=== PATIENT | male | born 1940 | race Caucasian/White ===

== ENCOUNTER → 2016-07-11 | Day surgery (SDC) | payer OTHER ==
[2016-07-03 10:47] VITALS: Ht 172.7 cm; Wt 86.4 kg
[~2016-07-11] VITALS: Ht 172.7 cm; Wt 86.4 kg
[~2016-07-11] MED LIST: 500ML BSS 0.3ML EPI 1:1000PF IRRIG ONE; ACETAMINOPHEN 325 MG TAB PO PRN; AMVISC PLUS 0.8ML SYRINGE INT OCU ONE; ATROPINE SULFATE 0.1 MG/ML 5ML SYR IV PRN; BSS FLUSH ONE; CHOL200010 PO; CINN1CAP2 PO; CYAN100020 PO; EpHEDrine SULFATE INJ 50 MG/ML AMP IV PRN; EpINEphrine INJ 1MG/ML AMP 1 MG/ML AMP ONE; FENTANYL CITRATE INJ 50 MCG/1 ML 2 ML VIAL IV PRN; FLUMAZENIL 0.1 MG/1 ML 10 ML VIAL IV PRN; GEMF600T PO; GLC/500 PO; HYDROmorphone INJ 2 MG/ML SYR/VIAL IV PRN; LABETALOL HCL IV 5 MG/ML 20ML IV PRN; LACTATED RINGER'S 1000ML 500 ML IV SCH; LIDOCAINE 3.5% OPH GEL PER APPLICATION CHARGE ONE; LIDOCAINE HCL 1% MPF 2 ML VIAL ONE; MEPERIDINE HCL 25 MG/ML CARP IV PRN; MIDAZOLAM HCL 1 MG/ML 2ML VIAL ONE; MULT-506 PO; NALOXONE HCL 0.4 MG/1 ML VIAL/CARP IV PRN; OCUCOAT 1 ML SOLN IO ONE; OMEGCAP2 PO; ONDANSETRON INJ 2 MG/ML 2 ML VIAL IV PRN; PHENYLEPHRINE 100MCG/ML 5ML SYR IV PRN; POTA1TAB97 PO; POVIDONE-IODINE OP SOLN 30 ML BTL ONE; PROPARACAINE 0.5% OP SOLN PER DROP CHARGE OPR SCH; PRT/20 PO; SAXAGLIPTIN PO; SODIUM CHLORIDE 0.9% 500ML IV SCH; TOBRAMYCIN/DEXAMETHASONE OPH OINT PER APPLN CHARGE ONE
[2016-07-11] MEDS: PHENYLEPHRINE HCL 2.5% OP SOLN PER DROP CHARGE OPR SCH ×2 (07:06→07:11)
[2016-07-11] MEDS: TROPICAMIDE 1% OP SOLN PER DROP CHARGE OPR SCH ×2 (07:07→07:12)
[2016-07-11] MEDS: CYCLOPENTOLATE HCL 1% OP SOLN PER DROP CHARGE OPR SCH ×2 (07:08→07:13)
[2016-07-11] MEDS: KETOROLAC 0.5% OP SOLN PER DROP CHARGE OPR SCH ×2 (07:09→07:14)
[2016-07-11] MEDS: GATIFLOXACIN OP SOLN PER DROP CHARGE OPR SCH ×2 (07:10→07:20)
--- NOTE | 2016-07-11 07:27 | History & Physical Bridge - [place] ---
H&P Re-Evaluation Bridge Note: I have examined the patient, reviewed the History & Physical and in the interval since the performance of the History & Physical I have noted the following changes of clinical significance: No changes noted
[2016-07-11 08:10] VITALS: TEMP 36.8
--- NOTE | 2016-07-11 08:10 | Discharge Instructions-SurgCtr ---
Discharge Instructions Visit Reason for Visit: Cataract Right Eye Discharge Discharge Diagnosis / Problem: cataract Discharge Goals Goal(s): Improve function Medications Stopped Medications Name(s): metformin stopped for 3 days Activity Recommendations Activity Limitations: per Instructions/Follow-up section Anesthesia . Post Anesthesia Instructions: If you have had General Anesthesia or IV Sedation: * Do not drive today. * Resume driving when surgeon permits. * Do not make important decisions or sign legal documents today. * Call surgeon for: 1. Temperature elevations greater than 101 degrees F. 2. Uncontrollable pain. 3. Excessive bleeding. 4. Persistent nausea and vomiting. 5. Medication intolerance (nausea, vomiting or rash). * For nausea and vomiting use only clear liquids such as: tea, soda, bouillon until nausea subsides, then gradually increase diet as tolerated. * If you have any concerns or questions, call your surgeon's office. If physician is unavailable and it is an emergency, call 911 or go to the nearest emergency room. . Instructions / Follow-Up Instructions / Follow-Up ACTIVITY RECOMMENDATIONS: * No strenuous lifting, jogging or running for 4 days * No swimming or yard work for 1 week. * Limited bending is permitted, such as putting on shoes. RETURN TO SCHOOL/WORK: No work until seen by physician in office. MEDICATIONS: Resume previous medications unless instructed otherwise by your surgeon. This includes eye drops for glaucoma. Zymaxid/Gatifloxacin (baldwin cap) - one drop every 2 hours until bedtime Nevanac/Ilevro/Prolensa/Ketorolac (mccartney cap) - one drop every 4 hours until bedtime Prednisolone (white/pink cap, SHAKE WELL) - one drop every 2 hours until bedtime Starting tomorrow - all 3 drops every 4 hours until seen in the office Optive drops - as needed for discomfort SPECIAL CARE INSTRUCTIONS: * Wear eyeshield when sleeping, for four nights. * You may wear your own glasses or sunglasses while awake. * You may read or watch TV * You may shower and wash your face, but be gentle around the eye and pat dry. * Blurry vision and mild irritation are normal. * Call office if pain is more severe or vision becomes dark at . FOLLOW UP VISIT: Follow-up with Dr Hassan tomorrow. Diet Recommendations Home Diet: resume previous diet Procedures Procedures Performed: Right Cataract Phacoemulsification With Intraocular Lens Implant Pending Studies Studies pending at discharge: no Medical Emergencies . Who to Call and When: Medical Emergencies: If at any time you feel your situation is an emergency, please call 911 immediately. . Non-Emergent Contact Non-Emergency issues call your: Separator Inserter . . "Provider Documentation" section prepared by Juan Pablo Hassan.
--- NOTE | 2016-07-11 08:11 | [facility] Operative Report ---
Operative Report 1. PREOPERATIVE DIAGNOSIS: Cataract of the right eye. 2. POSTOPERATIVE DIAGNOSIS: Same. 3. PROCEDURE: Phacoemulsification with intraocular lens implantation of the right eye. SURGEON: Dr. Juan Pablo Hassan. ANESTHESIA: Topical Lidocaine gel, 1% Non- Preserved intracameral Lidocaine, and monitored intravenous sedation. INDICATIONS FOR THE PROCEDURE: The patient is a 75 - year-old male with a history of cataract of the right eye causing significant visual impairment. The details of the proposed procedure were explained to the patient who asked appropriate questions and following discussion of all risks, benefits and alternatives agreed to have the procedure done. 4. OPERATION AND FINDINGS: DESCRIPTION OF PROCEDURE: After informed consent was obtained, the patient was brought to the Operating Room at the [facility]. The patient was placed in a supine position and then the right eye was prepped and draped in the usual sterile fashion for intraocular surgery. A drop of topical Lidocaine gel was placed in the operative eye. A wire lid speculum was then placed in the fornices. A corneal paracentesis was then created temporally. The Non-Preserved Lidocaine was then instilled into the anterior chamber. The anterior chamber was then pressurized with viscoelastic. A 2.0 mm clear corneal incision was then created temporally. A cystotome was inserted into the anterior chamber and used to create a tear in the anterior lens capsule. This capsular tear was then used to create a small flap and the flap was dragged in a counterclockwise direction in order to create a continuous curvilinear capsulorrhexis. Hydrodissection was accomplished with balanced salt solution. Phacoemulsification of the lens nucleus was then performed in a standard [id number] technique. The phaco time was 22 seconds with an average power of 14 %. The remaining cortical material was removed using irrigation aspiration. The capsular bag was then filled with viscoelastic. A [employer]ch [employer] Lomb MI60L +18.0 diopters lens was then loaded into the injector and injected into the capsular bag. The remaining viscoelastic was removed with the irrigation aspiration handpiece. The wound was hydrated and then checked and found to be watertight. The intraocular pressure was checked and found to be adequate. The wire lid speculum was removed and the patient's face was cleaned and dried. TobraDex ointment was placed in the inferior fornix. The patient was discharged to the Recovery Room having tolerated the procedure well. There were no complications. The patient will be seen tomorrow in the office for follow-up. I attest to the content of the Intraoperative Record and any orders documented therein. Any exceptions are noted below.
--- NOTE | 2016-07-11 08:28 | Anesthesia Progress Nt - [facility] ---
Anesthesia Post Op Note Date & Time Jul 11, 2016 at 08:28 Vital Signs Pain Intensity: 0 Vital Signs Past 12 Hours Date Time Temp Pulse Resp B/P Pulse Ox O2 Delivery O2 Flow Rate FiO2 07/11/16 08:10 36.8 69 16 124/73 97 Room Air 07/11/16 06:59 36.6 59 20 161/80 96 Room Air Notes Mental Status: alert / awake / arousable, participated in evaluation Pt Amnestic to Procedure: Yes Nausea / Vomiting: adequately controlled Pain: adequately controlled Airway Patency, RR, SpO2: stable & adequate BP & HR: stable & adequate Hydration State: stable & adequate Anesthetic Complications: no major complications apparent
[2016-07-11 08:36] VITALS: BP 132/76; PULSE 62; O2SAT 97
== END | disposition home or self-care (01) ==
LOC: X.SURG 06:44
PROVIDERS: ATTEND Ophthalmology
DX: H26.9 Unspecified cataract (principal); E11.36 Type 2 diabetes mellitus with diabetic cataract; M19.90 Unspecified osteoarthritis, unspecified site; E78.5 Hyperlipidemia, unspecified; Z98.42 Cataract extraction status, left eye; Z90.89 Acquired absence of other organs; I10 Essential (primary) hypertension; Z98.890 Other specified postprocedural states; Z87.891 Personal history of nicotine dependence; Z83.3 Family history of diabetes mellitus; Z82.49 Family history of ischemic heart disease and other diseases of the circulatory system; Z83.49 Family history of other endocrine, nutritional and metabolic diseases

== ENCOUNTER → 2016-08-14 | Outpatient (CLI) | payer OTHER ==
[~2016-08-14] MED LIST changes: -500ML BSS 0.3ML EPI 1:1000PF IRRIG ONE; -ACETAMINOPHEN 325 MG TAB PO PRN; -AMVISC PLUS 0.8ML SYRINGE INT OCU ONE; -ATROPINE SULFATE 0.1 MG/ML 5ML SYR IV PRN; -BSS FLUSH ONE; -EpHEDrine SULFATE INJ 50 MG/ML AMP IV PRN; -EpINEphrine INJ 1MG/ML AMP 1 MG/ML AMP ONE; -FENTANYL CITRATE INJ 50 MCG/1 ML 2 ML VIAL IV PRN; -FLUMAZENIL 0.1 MG/1 ML 10 ML VIAL IV PRN; -HYDROmorphone INJ 2 MG/ML SYR/VIAL IV PRN; -LABETALOL HCL IV 5 MG/ML 20ML IV PRN; -LACTATED RINGER'S 1000ML 500 ML IV SCH; -LIDOCAINE 3.5% OPH GEL PER APPLICATION CHARGE ONE; -LIDOCAINE HCL 1% MPF 2 ML VIAL ONE; -MEPERIDINE HCL 25 MG/ML CARP IV PRN; -MIDAZOLAM HCL 1 MG/ML 2ML VIAL ONE; -NALOXONE HCL 0.4 MG/1 ML VIAL/CARP IV PRN; -OCUCOAT 1 ML SOLN IO ONE; -ONDANSETRON INJ 2 MG/ML 2 ML VIAL IV PRN; -PHENYLEPHRINE 100MCG/ML 5ML SYR IV PRN; -POVIDONE-IODINE OP SOLN 30 ML BTL ONE; -PROPARACAINE 0.5% OP SOLN PER DROP CHARGE OPR SCH; -SODIUM CHLORIDE 0.9% 500ML IV SCH; -TOBRAMYCIN/DEXAMETHASONE OPH OINT PER APPLN CHARGE ONE
[2016-08-14 11:05] LABS: ALT/SGPT 29 U/L (12-78); BLOOD UREA NITROGEN 23 mg/dl (7-18); BUN/CREATININE RATIO 28.9 (10-20); CARBON DIOXIDE 22 mmol/L (21-32); CHLORIDE 108 mmol/L (98-107); CREATININE 0.81 mg/dl (0.60-1.40); GLUCOSE 160 mg/dl (70-99); SODIUM 142 mmol/L (136-145)
[2016-08-14 11:08] LABS: ALB/GLOB RATIO 1.1 (0.9-2); ALKALINE PHOSPHATASE 80 U/L (45-117); AST/SGOT 19 U/L (15-37)
[2016-08-14 11:24] LABS: ESTIMATED AVERAGE GLUCOSE 163 mg/dl; HA1C FLAG Normal (Normal)
== END | disposition home or self-care (01) ==
LOC: C.LABBC 07:02
PROVIDERS: ATTEND Internal Medicine
DX: E11.9 Type 2 diabetes mellitus without complications (principal)

== ENCOUNTER → 2017-02-21 | Outpatient (CLI) | payer OTHER ==
[2017-02-21 11:34] LABS: BLOOD UREA NITROGEN 22 mg/dl (7-18); BUN/CREATININE RATIO 26.9 (10-20); CALCIUM 9.4 mg/dl (8.5-10.1); CARBON DIOXIDE 29 mmol/L (21-32); CHLORIDE 105 mmol/L (98-107); CREATININE 0.82 mg/dl (0.60-1.40); GLUCOSE 201 mg/dl (70-99); POTASSIUM 4.2 mmol/L (3.5-5.1); SODIUM 136 mmol/L (136-145)
[2017-02-21 11:37] LABS: ALKALINE PHOSPHATASE 102 U/L (45-117); ALT/SGPT 32 U/L (12-78); AST/SGOT 29 U/L (15-37); CHOLESTEROL 167 mg/dl (0-200); CHOLESTEROL/HDL RATIO 5.6; HDL CHOLESTEROL 30 mg/dl; LDL CHOLESTEROL CALCULATED 92 mg/dl; TRIGLYCERIDES 224 mg/dl (0-150); VERY LOW DENSITY LIPOPROT CALC 45 mg/dl
[2017-02-21 12:11] LABS: ESTIMATED AVERAGE GLUCOSE 183 mg/dl; HA1C FLAG Normal (Normal)
== END | disposition home or self-care (01) ==
LOC: C.LABBC 07:34
PROVIDERS: ATTEND Internal Medicine
DX: M19.90 Unspecified osteoarthritis, unspecified site (principal)

== ENCOUNTER → 2017-09-07 | Outpatient (CLI) | payer OTHER ==
[2017-09-07 11:29] LABS: ALBUMIN 3.7 gm/dl (3.4-5.0); ALT/SGPT 24 U/L (12-78); BLOOD UREA NITROGEN 19 mg/dl (7-18); CALCIUM 8.8 mg/dl (8.5-10.1); CARBON DIOXIDE 26 mmol/L (21-32); CHOLESTEROL 128 mg/dl (0-200); CREATININE 0.72 mg/dl (0.60-1.40); GLUCOSE 161 mg/dl (70-99); SODIUM 138 mmol/L (136-145)
[2017-09-07 11:32] LABS: ALKALINE PHOSPHATASE 88 U/L (45-117); AST/SGOT 15 U/L (15-37); LDL CHOLESTEROL CALCULATED 55 mg/dl; TOTAL PROTEIN 7.3 gm/dl (6.4-8.2)
[2017-09-07 11:51] LABS: HEMOGLOBIN A1C 6.6 % (4.5-5.6)
== END | disposition home or self-care (01) ==
LOC: C.LABBC 07:18
PROVIDERS: ATTEND Internal Medicine
DX: E11.69 Type 2 diabetes mellitus with other specified complication (principal)

== ENCOUNTER → 2017-10-05 | Outpatient (CLI) | payer OTHER | END | disposition home or self-care (01) | LOC: C.LABBC 11:18 | PROVIDERS: ATTEND Nurse Practitioner Adult Health | DX: E55.9 Vitamin D deficiency, unspecified (principal); E11.9 Type 2 diabetes mellitus without complications ==

== ENCOUNTER 2021-02-12 10:44 | Inpatient (IN) ==
--- NOTE | 2021-02-12 12:21 | Emergency Department Note ---
Impression & Plan Lower back pain, Sciatica, Bilateral leg weakness, Failure of outpatient treatment ED Provider Note NAME: BRIELLE LOVE AGE: 80 SEX: M : 1940 ARRIVES VIA: Walk-In INFORMANT: [Patient] ED PROVIDER(S): [Graeme Persaud MD] CHIEF COMPLAINT: Back pain HISTORY OF PRESENT ILLNESS: The patient is an 80-year-old male who presents with ongoing right lower back pain radiating down his right leg. His right leg is weak compared to the left. He has not fallen though. He is using ice, Tylenol, hydrocodone with minimal pain relief. He states that he cannot sleep at night. He is rocking in bed because of the discomfort. It is severe. The patient was scheduled for surgery on his back through Dr. Paez's office. This was scheduled for March but now may have been moved up for this Sunday, 2 days from now. He was referred to this ER for hospitalization/admission given the ongoing pain and his lack of relief with oral meds. The patient has undergone lumbar injections. These worked for a while but lately, they have not been working. There has been no fever. No cough or cold or congestion. No urinary complaints. REVIEW OF SYSTEMS: See HPI for pertinent positives and negatives. A total of ten systems were reviewed and were otherwise negative. PMHx/PSHx: See Below SOCIAL HISTORY: See Below. PHYSICAL EXAM: GENERAL: Patient is in no acute distress. HEENT: No acute trauma, normocephalic atraumatic, mucous membranes moist, no nasal congestion, no scleral icterus. NECK: No stridor, no adenopathy, no meningismus, trachea is midline. LUNGS: Clear to auscultation bilaterally, no wheeze, no rhonchi, breath sounds equal. HEART: Without murmurs gallops or rubs, regular rate and rhythm. ABDOMEN: Soft, nontender, bowel sounds positive, no hernias, no peritonitis. EXTREMITIES: No cyanosis, mild bilateral pedal edema, full range of motion of all the joints without pain or difficulty, no signs for acute trauma. NEUROLOGIC: Oriented x 3, no acute motor or sensory deficits, no focal weakness. SKIN: No rash, no jaundice, no diaphoresis. DIFFERENTIAL DIAGNOSIS: Musculoskeletal, disc herniation, fracture, metastatic disease, cord compression, discitis, sciatica, cauda equina, infection, aortic disease, renal colic, gastrointestinal, as well as other pathologies. EMERGENCY DEPARTMENT COURSE/PROCEDURES: MEDICAL DECISION MAKING: There is no leukocytosis or concerning anemia. There is a normal platelet count. No significant electrolyte abnormality or kidney failure. No concerning liver enzyme elevation. Urinalysis shows some glucose, no signs of infection. Covid testing is pending. On exam, the patient was not febrile or toxic. The patient presents with ongoing back pain with right leg discomfort and weakness. He can barely get around on his own. He is using [id number] pain meds as well as prescription pain meds. He has had injections in the lower back which recently have been failing. I did speak with Dr. Paez of spinal surgery. The patient is being hospitalized for an upcoming procedure to hopefully relieve his discomfort. He has failed outpatient treatment. Past Med/Surg History Medical History Balance disorder Borderline hypertension BPH (benign prostatic hyperplasia) Cerebrovascular disease follows with Dr. Panchal Dyslipidemia GERD (gastroesophageal reflux disease) Hx of lipoma with removal x several to arms Hypertriglyceridemia Kidney stones one small one present Lumbar radicular pain Lumbar spinal stenosis Severe at L2-3 Metabolic syndrome Osteoarthritis Pain of left lower extremity Sleep apnea no official dx, but notices he does have apenic episodes at night Type 2 diabetes mellitus NIDDM Surgical History (Updated 02/11/21 @ 13:32 by Apurva Woodall RN) History of cardiac cath Jun 2020 [facility] > could not stent so sent to [facility] for CABG History of cataract extraction bilat History of colonoscopy History of coronary artery bypass graft Jun 2020 > [address] [facility] History of tonsillectomy and adenoidectomy Family History Unknown Arteriosclerotic cardiovascular disease (ASCVD) Mother Hypertension Hearing loss Father Silicosis Brother Stroke syndrome Arteriosclerotic cardiovascular disease (ASCVD) Hx of CABG Diabetes Hypertension Sister Diabetes Hypertension Daughter Systemic lupus erythematosus Other No family history of bleeding disorder Social History Smoking Status: Former smoker Tobacco Type: Cigarettes Age Started Using Tobacco: 4; Age Quit Using Tobacco: 44; packs per day: 0.75; Years Smoked: 40; Second Hand Exposure: No; Hx Alcohol Use: No Hx Substance Use: No Preferred Language: Lithuanian Communication Ability: Effective Visual Impairment: Limited Hearing Ability: Use of Hearing Aid 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 Beliefs That Will Affect Care: None marital status: Current Living Situation: Spouse current occupational status: retired Feels Safe at Home: Yes Childhood Exposure to Second-Hand Smoke: Yes caffeine: Yes Dental Care, Regularly: No Physical Activity Frequency: Does not Exercise Physical Activity Frequency Comment: due to physical condition Seatbelt Use: always Sunscreen Use: No Do you think of yourself as: straight/heterosexual Assistive Devices: Cane, Glasses, Hearing Aid - Bilateral, Walker and Wheelchair Allergies Allergies Allergy/AdvReac Type Severity Reaction Status Date / Time Pork/Porcine Containing Allergy Unknown Blister Verified 02/12/21 11:25 Products baclofen AdvReac Mild Nausea Verified 02/12/21 11:25 Home Meds Home Medications Medication Instructions Recorded Confirmed cholecalciferol (vitamin D3) 50 2,000 units PO QAM 02/10/19 02/12/21 mcg (2,000 unit) capsule omega-3 fatty acids 1,000 mg 1,000 mg PO QAM 02/10/19 02/12/21 capsule (Fish Oil Concentrate) cyanocobalamin (vitamin B-12) 1,000 mcg PO QAM 03/06/19 02/12/21 1,000 mcg capsule aspirin 81 mg tablet,delayed 81 mg PO QAM 06/02/20 02/12/21 release (Adult Low Dose Aspirin) diphenhydramine 25 2 tab PO Q6H PRN 09/02/20 02/12/21 mg-acetaminophen 500 mg tablet (Tylenol PM Extra Strength) empagliflozin 10 mg tablet 10 mg PO QAM 02/11/21 02/12/21 (Jardiance) glipizide 5 mg tablet 5 mg PO PM 02/11/21 02/12/21 ibuprofen 800 mg tablet 200 mg PO Q6H PRN 02/11/21 02/12/21 metformin 500 mg tablet 1,000 mg PO BID 02/11/21 02/12/21 pantoprazole 40 mg tablet,delayed 40 mg PO PM 02/11/21 02/12/21 release potassium chloride 20 mEq 20 meq PO QAM 02/11/21 02/12/21 tablet,extended release tamsulosin 0.4 mg capsule 0.4 mg PO PM 02/11/21 02/12/21 atorvastatin 80 mg tablet 40 mg PO HS 02/12/21 02/12/21 exdrrfhcnvaa-tefcnjpf-nyjevh tablet 1 tab PO DAILY 02/12/21 02/12/21 Previous Rx's Medication Instructions Recorded nitroglycerin 0.4 mg sublingual 0.4 mg SUBLINGUAL Q5M PRN #20 tab 06/14/20 tablet blood sugar diagnostic (Accu-Chek #200 ea 07/06/20 Christen Plus test strp) lancets (Accu-Chek Softclix #200 ea 07/06/20 Lancets) metoprolol tartrate 25 mg tablet 25 mg PO BID #180 tab 08/12/20 flash glucose scanning reader #1 ea 01/25/21 ([employer] Checo 14 Day [place]) hydrocodone 5 mg-acetaminophen 325 1 tab PO BID PRN #60 tab 01/25/21 mg tablet Results & Data (ED) Vital Signs Vital Signs - 24 hr 02/12/21 10:45 02/12/21 10:51 02/12/21 12:45 Temperature 36.4 C L Temperature Source Temporal Artery Scan Pulse Rate 71 Pulse Rate [Finger] 68 76 Pulse Rhythm [Finger] Respiratory Rate 16 20 16 Respiratory Effort / Characteristics Non-Labored Non-Labored Spontaneous Respiratory Depth Normal Normal Respiratory Pattern Regular Blood Pressure 140/64 Blood Pressure [Left Arm] 145/97 H 138/78 Blood Pressure Mean 89 Blood Pressure Mean [Left Arm] 113 98 Blood Pressure Position Sitting Pulse Oximetry 98 97 98 Oxygen Delivery Method Room Air Room Air Sepsis Recent Fever Within 48 Hours No Sepsis New/Unexplained Change in Mental Status N/A Sepsis Action Taken by Nursing No Action Required 02/12/21 14:00 Temperature Temperature Source Pulse Rate Pulse Rate [Finger] 73 Pulse Rhythm [Finger] Regular Respiratory Rate 16 Respiratory Effort / Characteristics Non-Labored Respiratory Depth Normal Respiratory Pattern Blood Pressure Blood Pressure [Left Arm] 129/69 Blood Pressure Mean Blood Pressure Mean [Left Arm] 89 Blood Pressure Position Pulse Oximetry 95 Oxygen Delivery Method Room Air Sepsis Recent Fever Within 48 Hours Sepsis New/Unexplained Change in Mental Status Sepsis Action Taken by Fdc Medications Current Medication List: was personally reviewed by me Laboratory Data Attestation: I reviewed the patient's lab results. Result diagrams: 02/12/21 12:23 02/12/21 12:23 Lab Results 02/12/21 02/12/21 02/12/21 Range/Units 12:23 12:23 12:30 WBC 5.81 (4.8-10.8) K/uL RBC 5.24 (4.7-6.1) M/uL Hgb 15.0 (14.0-18.0) g/dL Hct 43.8 (42-52) % MCV 83.6 (80-100) fL MCH 28.6 (25-34) pg MCHC 34.2 (32-36) g/dL RDW Std Deviation 45.0 (36.4-46.3) fL RDW Coeff of Analilia 14.8 H (11.5-14.5) % Plt Count 163 (130-400) K/uL MPV 9.8 (7.4-10.4) fL Immature Gran % (Auto) 0.2 % Neut % (Auto) 45.2 % Lymph % (Auto) 42.7 % Norman % (Auto) 6.4 % Eos % (Auto) 5.2 % Baso % (Auto) 0.3 % Neut # (Auto) 2.63 (1.4-6.5) K/uL Lymph # (Auto) 2.48 (1.2-3.4) K/uL Norman # (Auto) 0.37 (0.11-0.59) K/uL Eos # (Auto) 0.30 (0-0.5) K/uL Baso # (Auto) 0.02 (0-0.2) K/uL Immature Gran # (Auto) 0.01 (0.00-0.02) K/uL Sodium 139 (136-145) mmol/L Potassium 4.2 (3.5-5.1) mmol/L Chloride 109 H (98-107) mmol/L Carbon Dioxide 24 (21-32) mmol/L Anion Gap 6.0 (3-11) BUN 21 H (7-18) mg/dl Creatinine 0.77 (0.6-1.4) mg/dl Est Cr Clr Drug Dosing 79.9 ml/min Est GFR ( Amer) 98.6 ml/min Est GFR (Non-Af Amer) 85.1 ml/min BUN/Creatinine Ratio 27.3 H (10-20) Glucose 134 H (70-99) mg/dl Calcium 9.0 (8.5-10.1) mg/dl Total Bilirubin 0.7 (0.2-1) mg/dl AST 12 L (15-37) U/L ALT 22 (12-78) U/L Alkaline Phosphatase 80 (45-117) U/L Total Protein 7.2 (6.4-8.2) gm/dl Albumin 3.7 (3.4-5.0) gm/dl Globulin 3.5 (2.5-4.0) gm/dl Albumin/Globulin Ratio 1.1 (0.9-2) Urine Color Yellow Urine Appearance Clear (Clear) Urine pH 5.5 (4.5-7.5) Ur Specific [place] 1.024 (1.000-1.030) Urine Protein Negative (Negative) Urine Glucose (UA) 3+ H (Negative) Urine Ketones Trace H (Negative) Urine Blood Negative (Negative) Urine Nitrite Negative (Negative) Urine Bilirubin Negative (Negative) Urine Urobilinogen Negative (Negative) Ur Leukocyte Esterase Negative (Negative) COVID-19 Eval Order 02/12/21 Range/Units 13:30 WBC (4.8-10.8) K/uL RBC (4.7-6.1) M/uL Hgb (14.0-18.0) g/dL Hct (42-52) % MCV (80-100) fL MCH (25-34) pg MCHC (32-36) g/dL RDW Std Deviation (36.4-46.3) fL RDW Coeff of Analilia (11.5-14.5) % Plt Count (130-400) K/uL MPV (7.4-10.4) fL Immature Gran % (Auto) % Neut % (Auto) % Lymph % (Auto) % Norman % (Auto) % Eos % (Auto) % Baso % (Auto) % Neut # (Auto) (1.4-6.5) K/uL Lymph # (Auto) (1.2-3.4) K/uL Norman # (Auto) (0.11-0.59) K/uL Eos # (Auto) (0-0.5) K/uL Baso # (Auto) (0-0.2) K/uL Immature Gran # (Auto) (0.00-0.02) K/uL Sodium (136-145) mmol/L Potassium (3.5-5.1) mmol/L Chloride (98-107) mmol/L Carbon Dioxide (21-32) mmol/L Anion Gap (3-11) BUN (7-18) mg/dl Creatinine (0.6-1.4) mg/dl Est Cr Clr Drug Dosing ml/min Est GFR ( Amer) ml/min Est GFR (Non-Af Amer) ml/min BUN/Creatinine Ratio (10-20) Glucose (70-99) mg/dl Calcium (8.5-10.1) mg/dl Total Bilirubin (0.2-1) mg/dl AST (15-37) U/L ALT (12-78) U/L Alkaline Phosphatase (45-117) U/L Total Protein (6.4-8.2) gm/dl Albumin (3.4-5.0) gm/dl Globulin (2.5-4.0) gm/dl Albumin/Globulin Ratio (0.9-2) Urine Color Urine Appearance (Clear) Urine pH (4.5-7.5) Ur Specific [place] (1.000-1.030) Urine Protein (Negative) Urine Glucose (UA) (Negative) Urine Ketones (Negative) Urine Blood (Negative) Urine Nitrite (Negative) Urine Bilirubin (Negative) Urine Urobilinogen (Negative) Ur Leukocyte Esterase (Negative) COVID-19 Eval Order Covid19 at [facility] Discharge Plan Visit Data Chief Complaint: Back Injury/Pain Stated Complaint: BACK PAIN ED Provider: Graeme Persaud Discharge Problem: Lower back pain, Sciatica, Bilateral leg weakness, Failure of outpatient treatment Patient Disposition: Admitted As Inpatient Condition: Fair Forms Stand Alone Forms: My [facility] Prescriptions Prescriptions: No Action diphenhydramine-acetaminophen [Tylenol PM Extra Strength] 25-500 mg tablet 2 tab PO Q6H PRN (Reason: Pain) RF: 0 omega-3 fatty acids [Fish Oil Concentrate] 1,000 mg capsule 1,000 mg PO QAM RF: 0 cholecalciferol (vitamin D3) 2,000 unit capsule 2,000 units PO QAM RF: 0 (DME) Accu-Chek Christen Plus test strp Strip See Rx Instructions .ROUTE .MEDSUPPLY Qty: 200 RF: 2 (DME) lancets [Accu-Chek Softclix Lancets] Misc See Rx Instructions .ROUTE .MEDSUPPLY Qty: 200 RF: 2 metoprolol tartrate 25 mg tablet 25 mg PO BID Qty: 180 RF: 3 hydrocodone-acetaminophen 5-325 mg tablet 1 tab PO BID PRN (Reason: pain) Qty: 60 RF: 0 (DME) [employer] Checo 14 Day [place] Misc See Rx Instructions .ROUTE .MEDSUPPLY Qty: 1 RF: 12 cyanocobalamin (vitamin B-12) 1,000 mcg capsule 1,000 mcg PO QAM RF: 0 aspirin [Adult Low Dose Aspirin] 81 mg tablet,delayed release (DR/EC) 81 mg PO QAM RF: 0 nitroglycerin 0.4 mg tablet, sublingual 0.4 mg sublingual Q5M PRN (Reason: chest pain) Qty: 20 RF: 3 ibuprofen 800 mg Tablet 200 mg PO Q6H PRN (Reason: Pain) RF: 0 metformin 500 mg tablet 1,000 mg PO BID RF: 0 tamsulosin 0.4 mg capsule 0.4 mg PO PM RF: 0 pantoprazole 40 mg tablet,delayed release (DR/EC) 40 mg PO PM RF: 0 glipizide 5 mg tablet 5 mg PO PM RF: 0 potassium chloride 20 mEq tablet extended release 20 meq PO QAM RF: 0 Jardiance 10 mg tablet 10 mg PO QAM RF: 0 atorvastatin 80 mg Tablet 40 mg PO HS RF: 0 Centrum Silver Tablet 1 tab PO DAILY RF: 0 Referrals Referrals: José Manuel Alamo MD [Primary Care Provider] -
[2021-02-12 12:37] LABS: Basophils # (auto) 0.02 K/uL (0-0.2); Basophils % (auto) 0.3 %; Eosinophils % (auto) 5.2 %; Hematocrit (blood only) 43.8 % (42-52); Immature Granulocytes # (auto) 0.01 K/uL (0.00-0.02); Immature Granulocytes % (auto) 0.2 %; Lymphocytes # (auto) 2.48 K/uL (1.2-3.4); Lymphocytes % (auto) 42.7 %; Mean Corpuscular Hemoglobin 28.6 pg (25-34); Mean Corpuscular Hgb Conc 34.2 g/dL (32-36); Mean Corpuscular Volume 83.6 fL (80-100); Mean Platelet Volume 9.8 fL (7.4-10.4); Monocytes # (auto) 0.37 K/uL (0.11-0.59); Monocytes % (auto) 6.4 %; Neutrophils # (auto) 2.63 K/uL (1.4-6.5); Neutrophils % (auto) 45.2 %; Platelet Count 163 K/uL (130-400); RDW Coefficient of Variation 14.8 % (11.5-14.5); Red Blood Count 5.24 M/uL (4.7-6.1); White Blood Count 5.81 K/uL (4.8-10.8)
[2021-02-12 12:55] LABS: Albumin Level 3.7 gm/dl (3.4-5.0); BUN Creatinine Ratio 27.3 (10-20); Creatinine Clr Calc Pharmacy 79.9 ml/min; Est GFR (African American) 98.6 ml/min; Est GFR (Non-African American) 85.1 ml/min; Potassium 4.2 mmol/L (3.5-5.1)
[2021-02-12 12:58] LABS: Appearance Urine Clear (Clear); Bilirubin Urine Negative (Negative); Blood Urine Negative (Negative); Color Urine Yellow; Glucose Urine UA 3+ (Negative); Ketones Urine Trace (Negative); Leukocyte Esterase Urine Negative (Negative); Nitrite Urine Negative (Negative); Protein Urine Negative (Negative); Specific Gravity Urine 1.024 (1.000-1.030); Urobilinogen Urine Negative (Negative); pH Urine 5.5 (4.5-7.5)
[2021-02-12 12:58] LABS: Albumin Globulin Ratio 1.1 (0.9-2); Bilirubin,Total 0.7 mg/dl (0.2-1); Globulin 3.5 gm/dl (2.5-4.0); Total Protein 7.2 gm/dl (6.4-8.2)
[2021-02-12] MEDS ORDERED: ONDANSETRON 4 MG OD TAB PO PRN (16:25)
[2021-02-12] MEDS ORDERED: HYDROmorphone INJ 0.5 MG/0.5 ML SYR IV PRN (16:25)
[2021-02-12] MEDS ORDERED: NALOXONE HCL 0.4 MG/1 ML VIAL/CARP IV PRN (16:25)
[2021-02-12] MEDS ORDERED: hydrOXYzine HCl 25 MG TAB PO PRN (16:25)
[2021-02-12] MEDS ORDERED: ONDANSETRON INJ 2 MG/ML 2 ML VIAL IV PRN (16:25)
[2021-02-12] MEDS ORDERED: diphenhydrAMINE Capsule 25 MG CAP PO PRN (16:25)
[2021-02-12] MEDS ORDERED: ACETAMINOPHEN 1,000 MG/100 ML VIAL IV PRN (16:25)
[2021-02-12] MEDS ORDERED: MAGNESIUM HYDROXIDE SUSP 30 ML UDC PO PRN (16:25)
[2021-02-12] MEDS ORDERED: SOD PHOSPHATE/SOD BIPHOSPHATE ENEMA 132 ML BTL PR PRN (16:25)
[2021-02-12] MEDS ORDERED: PROMETHAZINE HCL 12.5 MG in SODIUM CHLORIDE 0.9% 50 ML IV PRN (16:25)
[2021-02-12] MEDS ORDERED: METOCLOPRAMIDE HCL INJ 5 MG/ML 2 ML VIAL IV PRN (16:25)
[2021-02-12] MEDS ORDERED: traMADol HCL 50 MG TABLET PO PRN (16:25)
[2021-02-12] MEDS ORDERED: HYDROmorphone INJ 1 MG/ML SYRINGE IV PRN (16:25)
[2021-02-12] MEDS ORDERED: PHARMACY GLYCEMIC MGMT CONSULT PRN (16:25)
[2021-02-12] MEDS ORDERED: ALUMINUM/MAGNESIUM SUSP 30 ML UDC PO PRN (16:25)
[2021-02-12] MEDS ORDERED: GLUCAGON FOR INJ 1 MG VIAL IM PRN (16:45)
[2021-02-12] MEDS ORDERED: GLUCOSE 10 TABS/TUBE PO PRN (16:45)
[2021-02-12] MEDS ORDERED: CARBOHYDRATES FOR HYPOGLYCEMIA PO PRN (16:45)
[2021-02-12] MEDS ORDERED: DEXTROSE 50% 50 ML SYRINGE IV PRN (16:45)
[2021-02-12] MEDS ORDERED: GLUCOSE 40% GEL 15 GM TUBE PO PRN (16:45)
--- NOTE | 2021-02-12 18:53 | Hospitalist Consultation ---
Date of Consultation February 12, 2021 Assessment & Plan (1) S/P CABG x 2: Follows with [facility]- completed part of post cardiac surgery rehab- stopped secondary to back pain - ASA- hold or continue per Orthopaedic surgery - Continue Statin - Continue BB - NTG PRN (2) CAD (coronary artery disease): As above - ECG pending on admission, without anginal symptoms or complaints (3) Hypertension: Appears well controlled - continue BB (4) Peripheral neuropathy: Chronic - follows with neurology phsyical therapy (5) Dyslipidemia: Continue statin - MRI 20 with some small microvascular disease (6) Type 2 diabetes mellitus: Consult placed by primary team for pharmacy glucose control - continue to follow goal <180 (7) Sciatica: Per ortho (8) Lumbar radicular pain: Per orthopaedics - Pain control per ortho - ASA per Ortho- currently on hold - PT/OT per orthopaedics (9) DVT prophylaxis: SCD's per Orthopaedics - chemoprophylaxis per orthopaedics Supervising Physician Co-Signing Physician Notes Patient was seen and examined independently I discussed the case with Allan COLBY I reviewed pertinent past medical social family history and also the plan of care and agree with the plan of care Patient presents with intractable back pain has history of coronary disease will review revascularized in the winter. He has had no cardiac symptoms such as chest pain pressure or exertional dyspnea however his exertion has been limited by his radicular back pain. Continue his risk modification medications for hypertension and coronary artery disease. Will use insulin for controlling his diabetes as well as diabetic diet when appropriate. Patient being evaluated for surgical intervention by orthospine surgery. Physical examination shows card exam regular lungs to be clear has no defined neuro deficits but does have some radicular pain in his right leg. The medical following this patient perioperative period for potential orthospine intervention Any exceptions will be noted below History of Present Illness Reason for Consultation: medical managment Requesting Physician: Jaspreet Paez Attending Physician: Jaspreet Paez DO History of Present Illness 80 YOM with past medical history of: CABG x2 (2019- SUAZO-LAD, and SVG to first diagonal), HTN, CVA, DM II, HLD, lumbar stenosis, severe axonal sensory polyneuropathy, disc herniation L5-S1 with FLACO in Aug 21. Patient comes to the emergency room today for increasing pain to his lower right back, that radiates in his buttocks down to his right heel. He has had these symptoms before on the left side that was treated with FLACO. He recently had FLACO to the right side that has not been successful. He came into the EMD at the urging of his because his pain has been getting worse, leading to him having decrease sleep at night and starting to affect his ambulatory ability. He has been trying to manage at home with ice and sitting on pillows, as well as ice packs. He appears more comfortable now. Patient is being admitted by the Orthopaedics service and medicine was asked for consultation. He denies any chest pain or pulmonary complaints. Medication list reviewed: Already with glycemic consult to pharmacy: Basal bolus insulin. - Home medications reconciled: Held ASA 81 mg daily, held home Percocet, held Ibuprofen Perioperative risk: 0.21% Revised cardiac risk index: Moderate 6.6% (CAD and DM) Allergies Allergy/AdvReac Type Severity Reaction Status Date / Time Pork/Porcine Containing Allergy Unknown Blister Verified 02/12/21 11:25 Products baclofen AdvReac Mild Nausea Verified 02/12/21 11:25 Home Medications Medication Instructions Recorded Confirmed Type cholecalciferol (vitamin D3) 50 2,000 units PO QAM 02/10/19 02/12/21 History mcg (2,000 unit) capsule omega-3 fatty acids 1,000 mg 1,000 mg PO QAM 02/10/19 02/12/21 History capsule (Fish Oil Concentrate) cyanocobalamin (vitamin B-12) 1,000 mcg PO QAM 03/06/19 02/12/21 History 1,000 mcg capsule aspirin 81 mg tablet,delayed 81 mg PO QAM 06/02/20 02/12/21 History release (Adult Low Dose Aspirin) nitroglycerin 0.4 mg sublingual 0.4 mg SUBLINGUAL Q5M PRN #20 tab 06/14/20 02/12/21 Rx tablet blood sugar diagnostic (Accu-Chek #200 ea 07/06/20 02/11/21 Rx Christen Plus test strp) lancets (Accu-Chek Softclix #200 ea 07/06/20 02/11/21 Rx Lancets) metoprolol tartrate 25 mg tablet 25 mg PO BID #180 tab 08/12/20 02/12/21 Rx diphenhydramine 25 2 tab PO Q6H PRN 09/02/20 02/12/21 History mg-acetaminophen 500 mg tablet (Tylenol PM Extra Strength) flash glucose scanning reader #1 ea 01/25/21 02/11/21 Rx (FreeStyle Checo 14 Day [place]) hydrocodone 5 mg-acetaminophen 325 1 tab PO BID PRN #60 tab 01/25/21 02/12/21 Rx mg tablet empagliflozin 10 mg tablet 10 mg PO QAM 02/11/21 02/12/21 History (Jardiance) glipizide 5 mg tablet 5 mg PO PM 02/11/21 02/12/21 History ibuprofen 800 mg tablet 200 mg PO Q6H PRN 02/11/21 02/12/21 History metformin 500 mg tablet 1,000 mg PO BID 02/11/21 02/12/21 History pantoprazole 40 mg tablet,delayed 40 mg PO PM 02/11/21 02/12/21 History release potassium chloride 20 mEq 20 meq PO QAM 02/11/21 02/12/21 History tablet,extended release tamsulosin 0.4 mg capsule 0.4 mg PO PM 02/11/21 02/12/21 History atorvastatin 80 mg tablet 40 mg PO HS 02/12/21 02/12/21 History pdhddwzuevjl-tzsqmngk-yugnwh tablet 1 tab PO DAILY 02/12/21 02/12/21 History Patient History Medical History Balance disorder Borderline hypertension BPH (benign prostatic hyperplasia) Cerebrovascular disease follows with Dr. Panchal Dyslipidemia GERD (gastroesophageal reflux disease) Hx of lipoma with removal x several to arms Hypertriglyceridemia Kidney stones one small one present Lumbar radicular pain Lumbar spinal stenosis Severe at L2-3 Metabolic syndrome Osteoarthritis Pain of left lower extremity Sleep apnea no official dx, but notices he does have apenic episodes at night Type 2 diabetes mellitus NIDDM Surgical History History of cardiac cath Jun 2020 [facility] > could not stent so sent to [facility] for CABG History of cataract extraction bilat History of colonoscopy History of coronary artery bypass graft Jun 2020 > 2 vessels > [facility] History of tonsillectomy and adenoidectomy Family History Unknown Arteriosclerotic cardiovascular disease (ASCVD) Mother Hypertension Hearing loss Father Silicosis Brother Stroke syndrome Arteriosclerotic cardiovascular disease (ASCVD) Hx of CABG Diabetes Hypertension Sister Diabetes Hypertension Daughter Systemic lupus erythematosus Other No family history of bleeding disorder Social History Smoking Status: Never smoker Tobacco Type: Cigarettes Age Started Using Tobacco: 4; Age Quit Using Tobacco: 44; packs per day: 0.75; Years Smoked: 40; Second Hand Exposure: No; Hx Alcohol Use: No Hx Substance Use: No Preferred Language: Egyptian Communication Ability: Effective Visual Impairment: Limited Hearing Ability: Use of Hearing Aid Night Custodian Required: No Beliefs That Will Affect Care: None marital status: Current Living Situation: Spouse current occupational status: retired Other Information That Helps Us Care for You: No Feels Safe at Home: Yes Safety Concerns: Feels Safe At This Time Childhood Exposure to Second-Hand Smoke: Yes caffeine: Yes Dental Care, Regularly: No Physical Activity Frequency: Does not Exercise Physical Activity Frequency Comment: due to physical condition Seatbelt Use: always Sunscreen Use: No Do you think of yourself as: straight/heterosexual Assistive Devices: Glasses, Hearing Aid - Bilateral and Walker Review of Systems Review of Systems: REVIEW OF SYSTEMS: Constitutional: No fever, sweats or chills Eyes: No diplopia, no worsening or blurred vision ENT: normal hearing, no trouble swallowing Respiratory: No cough, sputum, dyspnea at rest or on exertion Cardiovascular: No chest pain, tightness or palpitations Abdomen: No pain, nausea, vomiting, diarrhea or constipation Musculoskeletal: (+) joint pain, leg pain back pain, NO calf pain, swelling Neurologic: (+) balance and walking secondary to back and leg pain, NO weakness, numbness/tingling Psychiatric: No anxiety or depression Skin: No rash or itch Physical Exam Physical Exam: PHYSICAL EXAM: General: awake, alert, no apparent distress Head: Normocephalic, atraumatic ENT: PERRL, EOMI, no pharyngeal exudate, mucous membranes moist Neuro: AAO x 3, speech clear and appropriate, strength intact bilaterally 5/5, sensation intact and equal all extremities and dermatomes, no pronator drift Chest: equal rise and fall of the chest, no accessory muscle use, no heaves or thrills, Clear to auscultation, on room air, Cardiac: Regular rate and rhythm, telemetry reviewed, skin warm dry, cap refill <3 seconds, peripheral pulses +2 no JVD, no murmur, no edema GI: NABS x 4 quadrants, soft, nontender to palpation, no rebound, guarding or tenderness : Spontaneously voiding, no pain, no CVA tenderness, MSK: Pain with straight leg raise to the right, good straight leg raise on the left, no muscular atrophy, good fire of quads, sensation equal bilaterally. Psych: Normal mood and affect Skin: no rash or erythema Results & Data Results & Data ([facility]) Vital Signs (Past 12 Hours) Vital Signs Temp Pulse Pulse Resp BP BP Pulse Ox 02/12/21 17:49 71 16 140/82 98 02/12/21 17:25 70 18 134/64 98 02/12/21 16:32 75 18 136/72 99 02/12/21 14:00 73 16 129/69 95 02/12/21 12:45 76 16 138/78 98 02/12/21 10:51 36.4 C L 71 20 140/64 97 02/12/21 10:45 68 16 145/97 H 98 Laboratory Results Abnormal Labs 02/12/21 02/12/21 02/12/21 12:23 12:23 12:30 RDW Coeff of Analilia 14.8 H Chloride 109 H BUN 21 H BUN/Creatinine Ratio 27.3 H Glucose 134 H POC Glucose AST 12 L Urine Glucose (UA) 3+ H Urine Ketones Trace H 02/12/21 19:01 RDW Coeff of Analilia Chloride BUN BUN/Creatinine Ratio Glucose POC Glucose 121 H AST Urine Glucose (UA) Urine Ketones Diagnostic Findings No imaging on admission ECG Additional Comments: Pending on admission- ordered PG Care Time/CCT Total # of Minutes Spent Total Time Spent with Patient: Total time spent is greater than 50% in coordination of care (as documented) at patient's floor/unit and/or counseling patient: Coding Level of Care Code 93063 Inpt Consult Level 4 Diagnoses S/P CABG x 2 Z95.1 CAD (coronary artery disease) I25.10 Hypertension I10 Peripheral neuropathy G62.9 Sciatica M54.31 Laterality: right Dyslipidemia E78.5 Type 2 diabetes mellitus E11.9 Lumbar radicular pain M54.16 DVT prophylaxis Z29.9 (1) Sciatica Laterality: right Qualified Code(s): M54.31 - Sciatica, right side
[2021-02-12] MEDS ORDERED: NITROGLYCERIN SL 0.4 MG/TAB TAB SL PRN (18:57)
[2021-02-12] MEDS: SODIUM CHLORIDE 0.9% 1000ML 1,000 ML IV SCH (20:00)
[2021-02-12] MEDS ORDERED: INSULIN GLARGINE SOLOSTAR 100 UNITS/ML 3 ML PEN SC ONE (21:00)
--- NOTE | 2021-02-12 21:25 | Pharmacy Report ---
Pharmacy Glycemic Short Note 2 - Date of Service February 12, 2021 - Glycemic Short BSG Results (Last 24 hours): 02/12/21 02/12/21 02/12/21 12:23 19:01 21:12 Glucose 134 H POC Glucose 121 H 140 H OUTPATIENT ANTIDIABETIC REGIMEN: * Metformin * Glipizide * Empagliflozin ASSESSMENT: * 80 yo M with T2DM admitted for inadequate outpatient pain control and surgical consult with Dr. Paez * BSG's today in range, but stopping po meds. Will therefore initiate low-dose Lantus x1 and reassess tomorrow * Initiate Novolog weight-based moderate stress estimate PLAN FOR INPATIENT GLYCEMIC CONTROL: * Hold outpatient oral diabetes medications * Basal insulin * Lantus 10-15 units SQ x1 tonight depending on BSG * Bolus insulin * NovoLog per scale ACHS or Q6hrs while NPO * Goal Range: Low 110 mg/dL - High 140 mg/dL * Correction Factor: 30 mg/dL/unit * Nutritional / Prandial insulin per carb ratio of 1 unit per 9 grams CHO consumed PLAN FOR DISCHARGE: * tbd
[2021-02-12] MEDS: INSULIN ASPART 100 UNITS/ML 3 ML PEN SC SCH (21:34)
[2021-02-12] MEDS: METOPROLOL TARTRATE 25 MG TAB PO SCH (22:01)
[2021-02-12] MEDS: ATORVASTATIN 40 MG TAB PO SCH (22:01)
[2021-02-12] MEDS: PANTOprazole 40 MG TAB PO SCH (22:01)
[2021-02-12] MEDS: TAMSULOSIN HCL 0.4 MG CAP PO SCH (22:01)
[2021-02-13] MEDS: oxyCODONE HCL IR 5 MG TAB (IMMEDIATE RELEASE) PO PRN ×2 (00:26→07:49)
[2021-02-13] MEDS: ACETAMINOPHEN 500 MG TAB PO PRN (07:48)
[2021-02-13] MEDS: POTASSIUM CHLORIDE CRTAB 20 MEQ TABCR PO SCH (07:50)
[2021-02-13] MEDS: METOPROLOL TARTRATE 25 MG TAB PO SCH ×2 (07:50→20:00)
--- NOTE | 2021-02-13 07:57 | Hospitalist Progress Note ---
Date of Service February 13, 2021 Assessment & Plan (1) Lumbar spinal stenosis: Plan: Persistent discomfort uncontrolled by outpatient measures including FLACO Initially scheduled to have surgery next month, but persistent symptoms at home reported uncontrolled with ordered medications and told to come to ER Holding ASA per orthopedic surgery but continued on statin, BB, NTG prn CXR pre-op without acute process however does note 1.4 cm right lung base nodular density may be secondary to summation density versus pulmonary nodule. Correlation with a nonemergent follow-up chest CT recommended. EKG NSR and right axis deviation, anterior infarct, but suspect lead placement wrong as there is no R wave progression in precordial leads-repeat EKG in the morning DM II, AHA diet for today Pain control, bowel regimen, PT/OT per primary NPO after midnight Labs in AM Would recommend moving to telemetry post-surgery for closer monitoring given hx CABG x 02 June 2020 as below (2) S/P CABG x 2: Plan: Presented to ER 06/18/20 for crescendo decrescendo angina pectoris and underwent cardiac cath which reveal severe disease in ostial and proximal LAD and 1st diagonal branch. LCx totally obstructed with good distal collateral flow and patient transferred to [facility] and underwent 2 vessel bypass on Jun 22, 2020 -- discharged Jun 28, 2020. Unable to complete full post-cardiac surgery rehab 2nd to back pain/neuropathy. Done by Dr. Mathew at [facility] Holding ASA per orthopedic surgery but continued on statin, BB, NTG prn CXR pre-op without acute process however does note 1.4 cm right lung base nodular density may be secondary to summation density versus pulmonary nodule. Correlation with a nonemergent follow-up chest CT recommended. (Of note, denied hx smoking) EKG NSR Rec monitoring on telemetry bed post-operatively (3) CAD (coronary artery disease): Plan: EKG NSR, anterior infarct, RAD but again likely poor lead placement-repeat EKG in the morning No CP reported(hx of symptoms for prior of classic crescendo/decrescendo angina) EKG with CP Continue metoprolol 25mg BID, Atorvastatin 40mg HS (consider increasing to 80mg HS) ASA on hold for surgery Would monitor on telemetry post-operatively (4) Hypertension: Plan: Controlled BP 146/69 Continue metoprolol tartrate 25mg PO BID Continue to monitor (5) Peripheral neuropathy: Plan: underwent EMG/NCS 11/10/2020 w/ chronic severe axonal sensory motor polyneuropathy. Chronic denervation changes noted in most tested muscles in the left lower extremity which can be seen and longstanding polyneuropathies with loss of the proximal to distal gradient were suggestive of an underlying L2-L5 poly radiculopathy. 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 Glycemic consult placed by primary Repeat A1c pending BSGs controlled Continue to monitor (8) Sciatica: Plan: Per ortho (9) Lumbar radicular pain: Plan: see above (10) Sensorineural hearing loss (SNHL) of both ears: Plan: See by ENT Auditory canal MRI without schwannoma b/l assistive devices (11) DVT prophylaxis: Plan: SCD's per Orthopaedics - chemoprophylaxis per orthopaedics Plan: NPO after midnight Admission and Anticipated Discharge Date Admission Date: February 12, 2021 Supervising Physician Co-Signing Physician Notes PA Supervision Note: I did not personally see or examine the patient today, but I verified all sun points of PITO Nolasco's assessment and plan with the following exceptions/additions: None Subjective Patient evaluated this afternoon, at bedside. Pain well controlled with current medications. Eating/drinking without issue. States he had a BM this morning. Awaiting time for surgery tomorrow. asked about visitation policy as she was told if roommate with visitor she was not allowed to visit -- discussed at current time one visitor per patient, however this could change room attendant the upcoming week as cases rise in the community. Patient states neuropathy bad at baseline, worse on the right, and he is hopeful this improves after surgery. Recent cardiac revascularization Jun 22 [place], no cp/sob. No fever, chills, abdominal pain, nausea, vomiting reported. Review of Systems Review of Systems: All systems reviewed & are unremarkable except as noted in HPI & below Physical Exam Physical Exam: PHYSICAL EXAM: General: awake, alert, no apparent distress, sitting up in chair, at bedside Head: Normocephalic, atraumatic ENT: PERRL, EOMI, no pharyngeal exudate, mucous membranes moist Neuro/MSK: AAO x 3, speech clear and appropriate, moves all extremities. strength 5/5 flexion/extension LE however 4/5 RLE, 5/5 LLE . pain with straight leg CV: RRR, no m/r/g Resp: CTAB, no w/c/r, 98% on RA GI: +BS, soft, non-tender : no lopez Psych: AOx3, euthymic Skin; clean, dry, no obvious rashes or lesions Results & Data Results & Data ([facility]) Vital Signs (Past 12 Hours) Vital Signs Temp Pulse Resp BP Pulse Ox 02/13/21 07:00 36.6 C 79 20 146/69 H 98 02/12/21 21:37 36.6 C 80 16 151/81 H 96 Laboratory Results 02/13/21 02/13/21 02/13/21 Range/Units 12:25 09:53 09:53 WBC 5.87 (4.8-10.8) K/uL RBC 5.13 (4.7-6.1) M/uL Hgb 14.9 (14.0-18.0) g/dL Hct 43.0 (42-52) % MCV 83.8 (80-100) fL MCH 29.0 (25-34) pg MCHC 34.7 (32-36) g/dL RDW Std Deviation 44.7 (36.4-46.3) fL RDW Coeff of Analilia 14.6 H (11.5-14.5) % Plt Count 149 (130-400) K/uL MPV 9.6 (7.4-10.4) fL Sodium 134 L (136-145) mmol/L Potassium 4.0 (3.5-5.1) mmol/L Chloride 106 (98-107) mmol/L Carbon Dioxide 23 (21-32) mmol/L Anion Gap 5.0 (3-11) BUN 21 H (7-18) mg/dl Creatinine 0.87 (0.6-1.4) mg/dl Est Cr Clr Drug Dosing 70.3 ml/min Est GFR ( Amer) 93.8 ml/min Est GFR (Non-Af Amer) 80.9 ml/min BUN/Creatinine Ratio 24.5 H (10-20) Glucose 238 H (70-99) mg/dl POC Glucose 134 H (70-99) mg/dl Estimat Average Glucose Hemoglobin A1c Calcium 8.6 (8.5-10.1) mg/dl 02/13/21 02/13/21 02/12/21 Range/Units 08:37 07:15 21:12 WBC (4.8-10.8) K/uL RBC (4.7-6.1) M/uL Hgb (14.0-18.0) g/dL Hct (42-52) % MCV (80-100) fL MCH (25-34) pg MCHC (32-36) g/dL RDW Std Deviation (36.4-46.3) fL RDW Coeff of Analilia (11.5-14.5) % Plt Count (130-400) K/uL MPV (7.4-10.4) fL Sodium (136-145) mmol/L Potassium (3.5-5.1) mmol/L Chloride (98-107) mmol/L Carbon Dioxide (21-32) mmol/L Anion Gap (3-11) BUN (7-18) mg/dl Creatinine (0.6-1.4) mg/dl Est Cr Clr Drug Dosing ml/min Est GFR ( Amer) ml/min Est GFR (Non-Af Amer) ml/min BUN/Creatinine Ratio (10-20) Glucose (70-99) mg/dl POC Glucose 160 H 140 H (70-99) mg/dl Estimat Average Glucose Pending Hemoglobin A1c Pending Calcium (8.5-10.1) mg/dl 02/12/21 Range/Units 19:01 WBC (4.8-10.8) K/uL RBC (4.7-6.1) M/uL Hgb (14.0-18.0) g/dL Hct (42-52) % MCV (80-100) fL MCH (25-34) pg MCHC (32-36) g/dL RDW Std Deviation (36.4-46.3) fL RDW Coeff of Analilia (11.5-14.5) % Plt Count (130-400) K/uL MPV (7.4-10.4) fL Sodium (136-145) mmol/L Potassium (3.5-5.1) mmol/L Chloride (98-107) mmol/L Carbon Dioxide (21-32) mmol/L Anion Gap (3-11) BUN (7-18) mg/dl Creatinine (0.6-1.4) mg/dl Est Cr Clr Drug Dosing ml/min Est GFR ( Amer) ml/min Est GFR (Non-Af Amer) ml/min BUN/Creatinine Ratio (10-20) Glucose (70-99) mg/dl POC Glucose 121 H (70-99) mg/dl Estimat Average Glucose Hemoglobin A1c Calcium (8.5-10.1) mg/dl Diagnostic Findings 02/01/21 MR lumbar spine wo con CLINICAL HISTORY: M54.16 - Radiculopathy, lumbar region TECHNIQUE: Sagittal and axial T1, T2 and STIR images were obtained. COMPARISON STUDY: July 21, 2019 OBSERVATIONS: The vertebral bodies and posterior elements appear intact. There is no abnormal bony signal present to suggest a marrow replacement process. Normal lumbar lordosis is preserved. Multilevel intervertebral disc space narrowing with disc desiccation and osteophytes are again seen. Minimal retrolisthesis of L5 on S1 is seen. L1-2: No disc protrusions or extrusions. No evidence of spinal canal or neural foraminal compromise. L2-3: Intervertebral disc space narrowing with posterior osteophytes. Diffuse bulge of the disc and hypertrophic changes of facet joints causing moderate to severe stenosis of the central canal which is unchanged since prior. Moderate stenosis of bilateral neuroforamina are seen at this level. L3-4: Intervertebral disc space is preserved. Disc desiccation and diffuse bulge of the disc is seen within mild stenosis of the central canal which is unchanged since prior. Mild narrowing of bilateral neuroforamina are seen at this level. L4-5: Intervertebral disc space is preserved. Disc desiccation and diffuse bulge of the disc is seen and in association with hypertrophic changes of facet joints are causing mild stenosis of the central canal which is unchanged since prior study. Moderate stenosis of the right neural foramina. Mild stenosis of the left neuroforamina. L5-S1: Redemonstration of the mild narrowing of intervertebral disc space with disc desiccation and posterior osteophytes. There is flattening of thecal sac is seen. Moderate to severe stenosis of bilateral neuroforamina are again seen. The conus medullaris and cauda equina appear normal. IMPRESSION: Multilevel degenerative changes of the spine as detailed above, not significantly changed since prior study performed July 31, 2019. ACT 112: Negative or not required by law. PG Care Time/CCT Total # of Minutes Spent Total Time Spent with Patient: Total time spent is greater than 50% in coordination of care (as documented) at patient's floor/unit and/or counseling patient: Coding Level of Care Code 75994 Subseq Hosp Care Lvl 3 Diagnoses S/P CABG x 2 Z95.1 CAD (coronary artery disease) I25.10 Hypertension I10 Peripheral neuropathy G62.9 Dyslipidemia E78.5 Type 2 diabetes mellitus E11.9 Sciatica M54.31 Laterality: right Lumbar radicular pain M54.16 DVT prophylaxis Z29.9 Sensorineural hearing loss (SNHL) of both ears H90.3 Lumbar spinal stenosis M48.061 (1) Sciatica Laterality: right Qualified Code(s): M54.31 - Sciatica, right side
--- NOTE | 2021-02-13 08:17 | XRay Report ---
XR chest 1V portable HISTORY: 80 years-old Male pre-op preoperative exam. Chronic low back pain COMPARISON: Chest radiographs 07/30/2020 TECHNIQUE: AP view of the chest FINDINGS: Cardiac silhouette is upper limits of normal in size. Prior median sternotomy with findings suggestiv e of CABG. Nipple shadow of the right lung base. Additionally, there is an indeterminate 1.4 cm right lung base nodular density. Bones appear grossly intact. Calcified plaque of the thoracic aorta. IMPRESSION: 1. No acute process. 2. 1.4 cm right lung base nodular density may be secondary to summation density versus pulmonary nodu le. Correlation with a nonemergent follow-up chest CT recommended. ACT 112: Negative or not required by law. The above report was generated using voice recognition software. It may contain grammatical, syntax o r spelling errors. Electronically signed by: Vishal Quarles M.D. 02/13/2021 8:16 AM
[2021-02-13] MEDS: INSULIN ASPART 100 UNITS/ML 3 ML PEN SC SCH ×4 (08:46→21:54)
[2021-02-13 10:03] LABS: Hemoglobin 14.9 g/dL (14.0-18.0); Mean Corpuscular Hgb Conc 34.7 g/dL (32-36); Mean Corpuscular Volume 83.8 fL (80-100); Mean Platelet Volume 9.6 fL (7.4-10.4); Platelet Count 149 K/uL (130-400); RDW Coefficient of Variation 14.6 % (11.5-14.5); RDW Standard Deviation 44.7 fL (36.4-46.3); Red Blood Count 5.13 M/uL (4.7-6.1); White Blood Count 5.87 K/uL (4.8-10.8)
[2021-02-13 10:27] LABS: BUN Creatinine Ratio 24.5 (10-20); Calcium 8.6 mg/dl (8.5-10.1); Creatinine Clr Calc Pharmacy 70.3 ml/min; Est GFR (African American) 93.8 ml/min; Est GFR (Non-African American) 80.9 ml/min
--- NOTE | 2021-02-13 10:52 | History & Physical Report ---
Date of Service February 13, 2021 Assessment & Plan (1) Lumbar spinal stenosis: Plan: At this time the patient had marked decline in function. There is advanced weakness. Subsequently I am recommending urgent decompression fusion L2-L3 to help with his severe pain and hopefully halt the progress of his neuro deficit. We will make him n.p.o. after midnight plan for surgery tomorrow. Admission and Anticipated Discharge Date Admission Date: February 12, 2021 History of Present Illness Chief Complaint: Right leg pain and weakness Primary Care Provider: José Manuel Alamo MD This is an 80-year-old male that was able to see approximately week ago in my office. He presented with severe spinal stenosis. He was in a wheelchair secondary to the inability to ambulate. At that time we did diagnose him with severe spinal stenosis L2-L3 and was scheduling surgery in the next few weeks. Unfortunately has had continued decline since my evaluation a week ago. His pain has been uncontrolled and admitted for pain control and worsening leg weakness. He continues to have pain predominantly in the right lower extremity buttock posterior thigh to the knee and lower extremity. He is unable to ambulate secondary to pain and weakness. The left lower extremity is asymptomatic. Allergies Allergy/AdvReac Type Severity Reaction Status Date / Time Pork/Porcine Containing Allergy Unknown Blister Verified 02/12/21 11:25 Products baclofen AdvReac Mild Nausea Verified 02/12/21 11:25 Home Medications Medication Instructions Recorded Confirmed Type cholecalciferol (vitamin D3) 50 2,000 units PO QAM 02/10/19 02/12/21 History mcg (2,000 unit) capsule omega-3 fatty acids 1,000 mg 1,000 mg PO QAM 02/10/19 02/12/21 History capsule (Fish Oil Concentrate) cyanocobalamin (vitamin B-12) 1,000 mcg PO QAM 03/06/19 02/12/21 History 1,000 mcg capsule aspirin 81 mg tablet,delayed 81 mg PO QAM 06/02/20 02/12/21 History release (Adult Low Dose Aspirin) nitroglycerin 0.4 mg sublingual 0.4 mg SUBLINGUAL Q5M PRN #20 tab 06/14/20 02/12/21 Rx tablet blood sugar diagnostic (Accu-Chek #200 ea 07/06/20 02/11/21 Rx Christen Plus test strp) lancets (Accu-Chek Softclix #200 ea 07/06/20 02/11/21 Rx Lancets) metoprolol tartrate 25 mg tablet 25 mg PO BID #180 tab 08/12/20 02/12/21 Rx diphenhydramine 25 2 tab PO Q6H PRN 09/02/20 02/12/21 History mg-acetaminophen 500 mg tablet (Tylenol PM Extra Strength) flash glucose scanning reader #1 ea 01/25/21 02/11/21 Rx (FreeStyle Checo 14 Day [place]) hydrocodone 5 mg-acetaminophen 325 1 tab PO BID PRN #60 tab 01/25/21 02/12/21 Rx mg tablet empagliflozin 10 mg tablet 10 mg PO QAM 02/11/21 02/12/21 History (Jardiance) glipizide 5 mg tablet 5 mg PO PM 02/11/21 02/12/21 History ibuprofen 800 mg tablet 200 mg PO Q6H PRN 02/11/21 02/12/21 History metformin 500 mg tablet 1,000 mg PO BID 02/11/21 02/12/21 History pantoprazole 40 mg tablet,delayed 40 mg PO PM 02/11/21 02/12/21 History release potassium chloride 20 mEq 20 meq PO QAM 02/11/21 02/12/21 History tablet,extended release tamsulosin 0.4 mg capsule 0.4 mg PO PM 02/11/21 02/12/21 History atorvastatin 80 mg tablet 40 mg PO HS 02/12/21 02/12/21 History yymoasbsjbuj-zeedqnya-bdtfjh tablet 1 tab PO DAILY 02/12/21 02/12/21 History Past Med/Surg History Medical History Balance disorder Borderline hypertension BPH (benign prostatic hyperplasia) Cerebrovascular disease follows with Dr. Panchal Dyslipidemia GERD (gastroesophageal reflux disease) Hx of lipoma with removal x several to arms Hypertriglyceridemia Kidney stones one small one present Lumbar radicular pain Lumbar spinal stenosis Severe at L2-3 Metabolic syndrome Osteoarthritis Pain of left lower extremity Sleep apnea no official dx, but notices he does have apenic episodes at night Type 2 diabetes mellitus NIDDM Surgical History History of cardiac cath Jun 2020 [facility] > could not stent so sent to [facility] for CABG History of cataract extraction bilat History of colonoscopy History of coronary artery bypass graft Jun 2020 > 2 vessels > [facility] History of tonsillectomy and adenoidectomy Family History Unknown Arteriosclerotic cardiovascular disease (ASCVD) Mother Hypertension Hearing loss Father Silicosis Brother Stroke syndrome Arteriosclerotic cardiovascular disease (ASCVD) Hx of CABG Diabetes Hypertension Sister Diabetes Hypertension Daughter Systemic lupus erythematosus Other No family history of bleeding disorder Social History Smoking Status: Never smoker Tobacco Type: Cigarettes Age Started Using Tobacco: 4; Age Quit Using Tobacco: 44; packs per day: 0.75; Years Smoked: 40; Second Hand Exposure: No; Hx Alcohol Use: No Hx Substance Use: No Preferred Language: Bolivian Communication Ability: Effective Visual Impairment: Limited Hearing Ability: Use of Hearing Aid Manager Programs Required: No Beliefs That Will Affect Care: None marital status: Current Living Situation: Spouse current occupational status: retired Other Information That Helps Us Care for You: No Feels Safe at Home: Yes Safety Concerns: Feels Safe At This Time Childhood Exposure to Second-Hand Smoke: Yes caffeine: Yes Dental Care, Regularly: No Physical Activity Frequency: Does not Exercise Physical Activity Frequency Comment: due to physical condition Seatbelt Use: always Sunscreen Use: No Do you think of yourself as: straight/heterosexual Assistive Devices: Glasses, Hearing Aid - Bilateral and Walker Physical Exam Physical Exam: Patient is alert and oriented Heart regular rhythm Lungs clear to auscultation Demonstrates evidence of a 4-/5 right quadriceps compared to 5 5 on the left. Plantar flexion dorsiflexion appears to be symmetric viral 5 bilaterally. There are sensory deficits to the right leg compared to the left. Results & Data ([facility]) Vital Signs (Past 12 Hours) Vital Signs Temp Pulse Resp BP Pulse Ox 02/13/21 07:00 36.6 C 79 20 146/69 H 98 Code Status & VTE Plan VTE Prophylaxis Plan VTE Prophylaxis will be ordered: Yes
[2021-02-13 16:25] LABS: Estimated Average Glucose 166 mg/dl; Hemoglobin A1C 7.4 % (4.5-5.6)
[2021-02-13] MEDS ORDERED: Nursing to Pharmacy Communication SCH (18:30)
[2021-02-13] MEDS: TAMSULOSIN HCL 0.4 MG CAP PO SCH (20:00)
[2021-02-13] MEDS: ATORVASTATIN 40 MG TAB PO SCH (20:00)
[2021-02-13] MEDS: PANTOprazole 40 MG TAB PO SCH (20:00)
[2021-02-13] MEDS ORDERED: INSULIN GLARGINE SOLOSTAR 100 UNITS/ML 3 ML PEN SC SCH (21:00)
[2021-02-14] MEDS: SODIUM CHLORIDE 0.9% 1000ML 1,000 ML IV SCH ×3 (03:37→22:26)
[2021-02-14] MEDS: METOPROLOL TARTRATE 25 MG TAB PO SCH ×2 (08:09→20:32)
[2021-02-14] MEDS: POTASSIUM CHLORIDE CRTAB 20 MEQ TABCR PO SCH (08:09)
[2021-02-14] MEDS ORDERED: Nursing to Pharmacy Communication SCH ×2 (08:15→15:30)
[2021-02-14 08:23] LABS: BUN Creatinine Ratio 24.5 (10-20); Calcium 9.1 mg/dl (8.5-10.1); Creatinine Clr Calc Pharmacy 87.3 ml/min; Est GFR (African American) 102.6 ml/min; Est GFR (Non-African American) 88.5 ml/min; Potassium 3.7 mmol/L (3.5-5.1)
[2021-02-14] MEDS: INSULIN ASPART 100 UNITS/ML 3 ML PEN SC SCH ×5 (08:46→20:32)
--- NOTE | 2021-02-14 11:10 | History & Physical Bridge Note ---
Date of Service February 14, 2021 History & Physical Bridge Note I have examined the patient, reviewed the History & Physical and in the interval since the performance of the History & Physical I have noted the following changes of clinical significance: no changes noted Patient continues to note severe right leg pain with progressive weakness particular affecting the right quadricep. This has been an progress over the past few days and recommending emergent decompression fusion to prevent permanent neuro deficits and progressive loss of function.
[2021-02-14] MEDS ORDERED: fentaNYL citrate 100 MCG/2 ML VIAL ONE ×3 (11:57→13:55)
[2021-02-14] MEDS ORDERED: DEXAMETHASONE SOD INJ 4 MG/ML VIAL ONE (11:57)
[2021-02-14] MEDS ORDERED: PROPOFOL IV EMULSION 10 MG/ML 20 ML VIAL IV ONE (11:57)
[2021-02-14] MEDS ORDERED: ROCURONIUM BROMIDE 10 MG/ML 5 ML VIAL IV ONE ×2 (11:57→12:52)
[2021-02-14] MEDS ORDERED: ONDANSETRON INJ 2 MG/ML 2 ML VIAL ONE (11:57)
[2021-02-14] MEDS ORDERED: ePHEDrine sulfate 50 MG/ML AMP IV PRN (12:08)
[2021-02-14] MEDS ORDERED: ATROPINE SULFATE 0.1 MG/ML 10ML SYR IV PRN (12:08)
[2021-02-14] MEDS ORDERED: fentaNYL citrate 100 MCG/2 ML VIAL IV PRN (12:08)
[2021-02-14] MEDS ORDERED: ONDANSETRON INJ 2 MG/ML 2 ML VIAL IV PRN ×2 (12:08→15:26)
[2021-02-14] MEDS ORDERED: HYDROmorphone INJ 2 MG/ML SYR/VIAL IV PRN (12:08)
--- NOTE | 2021-02-14 12:08 | Anesthesiology Consultation ---
Date of Service February 14, 2021 Assessment & Plan ASA ASA3 Proposed Anesthesia Anesthesia Type: General Risk / Benefits Reviewed With: PT / POA / Parent / Guardian, Accepts Plan and Informed Consent Obtained History Surgery Operation Date: 02/14/21 09:40 Proposed Procedures p L2-L3 Decompression and Fusion - Jaspreet Paez, Height/Weight Height: 5 ft 8 in Weight: 83.9 kg Allergies Allergy/AdvReac Type Severity Reaction Status Date / Time Pork/Porcine Containing Allergy Unknown Blister Verified 02/12/21 11:25 Products baclofen AdvReac Mild Nausea Verified 02/12/21 11:25 Medications Home Medications Medication Instructions Recorded Confirmed Last Taken cholecalciferol (vitamin D3) 50 2,000 units PO QAM 02/10/19 02/12/21 02/12/21 mcg (2,000 unit) capsule omega-3 fatty acids 1,000 mg 1,000 mg PO QAM 02/10/19 02/12/21 02/12/21 capsule (Fish Oil Concentrate) cyanocobalamin (vitamin B-12) 1,000 mcg PO QAM 03/06/19 02/12/21 02/12/21 1,000 mcg capsule aspirin 81 mg tablet,delayed 81 mg PO QAM 06/02/20 02/12/21 02/12/21 release (Adult Low Dose Aspirin) nitroglycerin 0.4 mg sublingual 0.4 mg SUBLINGUAL Q5M PRN #20 tab 06/14/20 02/12/21 Unknown tablet blood sugar diagnostic (Accu-Chek #200 ea 07/06/20 02/11/21 Unknown Christen Plus test strp) lancets (Accu-Chek Softclix #200 ea 07/06/20 02/11/21 Unknown Lancets) metoprolol tartrate 25 mg tablet 25 mg PO BID #180 tab 08/12/20 02/12/21 02/12/21 diphenhydramine 25 2 tab PO Q6H PRN 09/02/20 02/12/21 02/11/21 mg-acetaminophen 500 mg tablet (Tylenol PM Extra Strength) flash glucose scanning reader #1 ea 01/25/21 02/11/21 Unknown (FreeStyle Checo 14 Day [place]) hydrocodone 5 mg-acetaminophen 325 1 tab PO BID PRN #60 tab 01/25/21 02/12/21 02/11/21 mg tablet empagliflozin 10 mg tablet 10 mg PO QAM 02/11/21 02/12/21 02/12/21 (Jardiance) glipizide 5 mg tablet 5 mg PO PM 02/11/21 02/12/21 02/11/21 ibuprofen 800 mg tablet 200 mg PO Q6H PRN 02/11/21 02/12/21 02/11/21 14:00 400 mg metformin 500 mg tablet 1,000 mg PO BID 02/11/21 02/12/21 02/12/21 pantoprazole 40 mg tablet,delayed 40 mg PO PM 02/11/21 02/12/21 02/12/21 release potassium chloride 20 mEq 20 meq PO QAM 02/11/21 02/12/21 02/12/21 tablet,extended release tamsulosin 0.4 mg capsule 0.4 mg PO PM 02/11/21 02/12/21 02/11/21 atorvastatin 80 mg tablet 40 mg PO HS 02/12/21 02/12/21 02/11/21 izfwzhzqchfa-mdurydsl-dvtzsx tablet 1 tab PO DAILY 02/12/21 02/12/21 02/12/21 Active Medications Generic Name Dose Route Start Last Admin Trade Name Freq PRN Reason Stop Dose Admin Acetaminophen 1,000 mg 02/12/21 16:25 02/13/21 07:48 Acetaminophen 500 Mg Tab PO 03/14/21 16:24 1,000 mg Q8H PRN Administration MILD Pain Scale 1,2,3 & Pre PT Atorvastatin Calcium 40 mg 02/12/21 21:00 02/13/21 20:00 Atorvastatin 40 Mg Tab PO 03/14/21 20:59 40 mg HS ROHAN Administration Diphenhydramine HCl 25 mg 02/12/21 16:25 02/14/21 00:01 Diphenhydramine Capsule 25 Mg Cap PO 03/14/21 16:24 25 mg Q6H PRN Administration Allergic Rhinitis/Insomnia Sodium Chloride 1,000 mls @ 25 mls/hr 02/12/21 16:30 02/14/21 05:48 Nss 1000ml IV 03/14/21 16:29 25 mls/hr .Q24H ROHAN Infusion Insulin Aspart 0 units 02/14/21 12:00 02/14/21 08:46 Insulin Aspart 100 Units/Ml 3 Ml Pen SC 03/14/21 20:59 1 units Q6 ROHAN Administration Protocol Insulin Glargine 15 units 02/13/21 21:00 02/13/21 21:54 Insulin Glargine Solostar 100 Units/Ml 3 Ml Pen SC 03/15/21 20:59 15 units HS ROHAN Administration Protocol Metoprolol Tartrate 25 mg 02/12/21 21:00 02/14/21 08:09 Metoprolol Tartrate 25 Mg Tab PO 03/14/21 20:59 Not Given BID ROHAN Oxycodone HCl 5 - 10 mg 02/12/21 16:25 02/13/21 07:49 Oxycodone Hcl Ir 5 Mg Tab (Immediate Release) PO 02/26/21 16:24 5 mg Q4H PRN Administration mod to severe pain Pantoprazole Sodium 40 mg 02/12/21 21:00 02/13/21 20:00 Pantoprazole 40 Mg Tab PO 03/14/21 20:59 40 mg PM ROHAN Administration Potassium Chloride 20 meq 02/13/21 09:00 02/14/21 08:09 Potassium Chloride Crtab 20 Meq Tabcr PO 03/15/21 08:59 Not Given QAM ROHAN Tamsulosin HCl 0.4 mg 02/12/21 21:00 02/13/21 20:00 Tamsulosin Hcl 0.4 Mg Cap PO 03/14/21 20:59 0.4 mg PM ROHAN Administration NPO Date Last Intake of Fluids: 02/13/21 Time Last Intake of Fluids: 23:00 Date Last Intake of Solids: 02/13/21 Time Last Intake of Solids: 17:00 Past Medical History Medical History Balance disorder Borderline hypertension BPH (benign prostatic hyperplasia) Cerebrovascular disease follows with Dr. Panchal Dyslipidemia GERD (gastroesophageal reflux disease) Hx of lipoma with removal x several to arms Hypertriglyceridemia Kidney stones one small one present Lumbar radicular pain Lumbar spinal stenosis Severe at L2-3 Metabolic syndrome Osteoarthritis Pain of left lower extremity Sleep apnea no official dx, but notices he does have apenic episodes at night Type 2 diabetes mellitus NIDDM Exercise / Class Metabolic Activity II 4-5 Yardwork/Stairs/Walk up hill Past Family History Family History Unknown Arteriosclerotic cardiovascular disease (ASCVD) Mother Hypertension Hearing loss Father Silicosis Brother Stroke syndrome Arteriosclerotic cardiovascular disease (ASCVD) Hx of CABG Diabetes Hypertension Sister Diabetes Hypertension Daughter Systemic lupus erythematosus Other No family history of bleeding disorder Past Surgical History Surgical History History of cardiac cath Jun 2020 [facility] > could not stent so [place] [facility] [place] History of cataract extraction bilat History of colonoscopy History of coronary artery bypass graft Jun 2020 > 2 vessels [place] [facility] History of tonsillectomy and adenoidectomy Past Anesthesia History No Hx of Anesthesia Complications and No Family Hx of Anesthesia Complications History of PONV No Hx of PONV and No Hx of Motion Sickness Social History Smoking Status: Never smoker tobacco type: cigarettes Hx Alcohol Use: No Hx Substance Use: No substance use type: does not use Review of Systems denies fever/cough/ colds/ chest pain/ SOB/ ANGÉLICA denies ANGÉLICA Physical Exam Vital Signs Last Vital Signs Temp 36.9 C 02/14/21 11:44 Pulse 95 H 02/14/21 11:44 Resp 18 02/14/21 11:44 BP 148/73 H 02/14/21 11:44 Pulse Ox 98 02/14/21 11:44 ENMT Mouth: no TMJ abnormality and no dentition abnormality Thyromental Distance: > or= 3.5 Finger Breadths Mallampati Class: III Neck neck extension not limited Respiratory normal respiratory effort; no respiratory distress Auscultation: lungs clear to auscultation bilaterally Cardiovascular Rate/Rhythm: regular rate and regular rhythm Neurologic moves all extremities Psychiatric Orientation: alert and oriented x 3 Testing Laboratory Results 02/13/21 09:53 02/14/21 07:37 Hemoglobin A1c 7.4 % (4.5-5.6) H 02/13/21 07:15 Urine Color Yellow 02/12/21 12:30 Urine Appearance Clear (Clear) 02/12/21 12:30 Urine pH 5.5 (4.5-7.5) 02/12/21 12:30 Ur Specific [place] 1.024 (1.000-1.030) 02/12/21 12:30 Urine Protein Negative (Negative) 02/12/21 12:30 Urine Glucose (UA) 3+ (Negative) H 02/12/21 12:30 Urine Ketones Trace (Negative) H 02/12/21 12:30 Urine Nitrite Negative (Negative) 02/12/21 12:30 Ur Leukocyte Esterase Negative (Negative) 02/12/21 12:30 02/14/21 06:58 POC Glucose 143 H
[2021-02-14] MEDS ORDERED: BUPIVACAINE 0.5 % 5 MG/1 ML MPF 30ML VIAL ONE (12:10)
[2021-02-14] MEDS ORDERED: EPINEPHrine INJ 1 MG/ML AMP ONE (12:10)
[2021-02-14] MEDS ORDERED: ceFAZolin 2,000 MG/15 ML IV PUSH IV ONE (12:17)
[2021-02-14] MEDS ORDERED: ceFAZolin 2000MG 2,000 MG/15 ML SYR IV SCH (12:30)
[2021-02-14] MEDS ORDERED: FLOSEAL HEMOSTATIC MATRIX 10ML TOP ONE (13:43)
[2021-02-14] MEDS ORDERED: NEOSTIGMINE METHYLSULFATE 1 MG/ML 10ML VIAL ONE (13:46)
[2021-02-14] MEDS ORDERED: GLYCOPYRROLATE 0.2 MG/ML VIAL ONE (13:46)
--- NOTE | 2021-02-14 13:53 | Operative Report ---
Post Operative Report Pre & Post Diagnosis Operation Date: 02/14/21 09:40 Pre-Op Diagnosis: Lumbar spinal stenosis with neurogenic claudication and radiculopathy Post-Op Diagnosis: Same I identified the patient and participated in the time-out.: Yes Procedure Operation Date: 02/14/21 09:40 Actual Procedures #1 lumbar decompression with bilateral medial facetectomies and foraminotomies L1-2 and L2-L3. #2 posterior spinal fusion L2-L3. #3 placed posterior instrumentation L2-L3. #4 interbody fusion L2-3. #5 placement peek cage 10 x 26 mm at L2-L3. #6 placement locally harvested morselized autograft in the posterior gutters. #7 placement infuse collagen sponge and master graft to posterior gutters and I factor in the interbody space. Surgeon Jaspreet Paez DO Paint Line Production Supervisor Desire Pagan Estimated Blood Loss 100 Findings Consistent with Post-Op Diagnosis Specimens None Indications This is an 80-year-old male who presents with steady decline in neurologic function prickly affecting the right quadricep and is here for urgent decompression fusion. Description of Procedure Patient was met with identified informed consent obtained. Patient was then taken to the operative suite underwent an patient placed in a prone position the [place] table top Jean Claude frame. All bony prominences were well-padded eyes inspected to ensure no external proximal spine. This point lumbar spine was prepped and draped in a sterile fashion. Sharp dissection with the assistance of Bovie cautery was performed down to and exposing the lamina transverse processes of L2 and L3. From caudal to cephalad fashion complete laminectomy of L2 partial laminectomy L1 was performed including bilateral medial facetectomies and foraminotomies addressing severe spinal stenosis. Pedicle screws were then placed in L2 and L3 bilaterally with assistance of fluoroscopy and the proper sized stacy placed. By way of a transforaminal approach on the right complete discectomy of L2-L3 was performed endplates curetted to subcortically bone and a 10 x 22 mm peek cage filled with I factor tapped in position. The rods were then locked in final position bilaterally. The transverse processes of L2-L3 burred to subcortical bleeding bone. Infuse collagen sponge master graft local autograft was placed in the posterior gutters. 15 round ROSSY drain inserted. Incision was then closed with 1 Vicryl fascia 2-0 Vicryl subcutaneously and 4 Monocryl for final skin closure. Steri-Strip sterile dressings placed. Patient will continue PACU stable condition. Please note spinal cord monitoring visualized at the procedure no changes noted. Lastly Desire Pagan was present at the entire surgery and while the patient positioning complex portions of the surgery and final skin closure. I attest to the content of the Intraoperative Record and any orders documented therein. Any exceptions are noted below.
--- NOTE | 2021-02-14 14:35 | Pharmacy Report ---
Pharmacy Glycemic Short Note 2 - Date of Service February 14, 2021 - Glycemic Short BSG Results (Last 24 hours): 02/13/21 02/13/21 02/14/21 17:29 20:45 06:58 Glucose POC Glucose 151 H 161 H 143 H 02/14/21 02/14/21 07:37 14:12 Glucose 147 H POC Glucose 148 H OUTPATIENT ANTIDIABETIC REGIMEN: * Metformin 1000 mg PO BIDM * Glipizide 5 mg PO PM * Jardiance 10 mg PO AM * HbA1c = 7.4% (02/13/21) ASSESSMENT: 02/14: * Ellis received a total of 38 units of insulin yesterday * 15 units basal + 23 units bolus * BSGs were acceptable: 475-225-675-161 mg/dL * Fasting BSG was 143 mg/dL this AM * Patient is NPO today as surgery is planned this afternoon. * Pending perioperative steroid administration and postoperative BSG, patient's insulin regimen may need adjusted. Would recommend tightening Novolog for postoperative hyperglycemia given that it is likely stress/steroid related. However, it is important to maintain a BSG below 180 mg/dL to promote wound healing and prevent infection. As long as a diet is ordered and tolerated postoperatively, then plan on slightly increasing basal tonight. 02/12: * 80 yo M with T2DM admitted for inadequate outpatient pain control and surgical consult with Dr. Paez * BSG's today in range, but stopping po meds. Will therefore initiate low-dose Lantus x1 and reassess tomorrow * Initiate Novolog weight-based moderate stress estimate PLAN FOR INPATIENT GLYCEMIC CONTROL: * Hold outpatient oral diabetes medications * Basal insulin * Lantus 15-18 units SC HS (see eMAR for more details) * Bolus insulin * NovoLog per scale ACHS or Q6hrs while NPO * Goal Range: Low 110 mg/dL - High 140 mg/dL * Correction Factor: 25 mg/dL/unit * Nutritional / Prandial insulin per carb ratio of 1 unit per 8 grams CHO consumed PLAN FOR DISCHARGE: * HbA1c is at goal for this patient based on his age and comorbidities. No changes recommend upon discharge.
--- NOTE | 2021-02-14 14:41 | Fluoroscopy Report ---
FL lumbar spine 2-3V CLINICAL HISTORY: L2-L3 posterior decompression and fusion COMPARISON STUDY: Lumbar spine 02/01/2021. FLUOROSCOPY TIME: 22 seconds. FINDINGS: 2 fluoroscopic spot images of the lumbar spine demonstrate posterior decompression and fusi on within the upper lumbar spine. The exact levels are difficult to assess due to the spot image but appear to represent the L2-L3 level. The hardware appears intact. IMPRESSION: Fluoroscopy provided for posterior decompression and fusion at the L2-L3 level. ACT 112: Negative or not required by law. Electronically signed by: Gerson Angeles M.D. 02/14/2021 2:40 PM
[2021-02-14] MEDS ORDERED: LORazepam 0.5 MG TAB PO PRN (15:26)
[2021-02-14] MEDS ORDERED: diphenhydrAMINE Capsule 25 MG CAP PO PRN (15:26)
[2021-02-14] MEDS ORDERED: DO NOT ADMINISTER FLU VACCINE PRN (15:26)
[2021-02-14] MEDS ORDERED: ONDANSETRON 4 MG OD TAB PO PRN (15:26)
[2021-02-14] MEDS ORDERED: PROMETHAZINE HCL 12.5 MG in SODIUM CHLORIDE 0.9% 50 ML IV PRN (15:26)
[2021-02-14] MEDS ORDERED: ALUMINUM/MAGNESIUM SUSP 30 ML UDC PO PRN (15:26)
[2021-02-14] MEDS ORDERED: DO NOT ADMINISTER PNEUMOCOCCAL VACCINE PRN (15:26)
[2021-02-14] MEDS ORDERED: MAGNESIUM HYDROXIDE SUSP 30 ML UDC PO PRN (15:26)
[2021-02-14] MEDS ORDERED: bisacodyL 10 MG SUPP PR PRN ×2 (15:26→16:25)
[2021-02-14] MEDS ORDERED: METOCLOPRAMIDE HCL INJ 5 MG/ML 2 ML VIAL IV PRN (15:26)
[2021-02-14] MEDS ORDERED: SOD PHOSPHATE/SOD BIPHOSPHATE ENEMA 132 ML BTL PR PRN (15:26)
[2021-02-14] MEDS ORDERED: hydrOXYzine HCl 25 MG TAB PO PRN (15:26)
[2021-02-14] MEDS ORDERED: ACETAMINOPHEN 1,000 MG/100 ML VIAL IV PRN (15:26)
[2021-02-14] MEDS ORDERED: NALOXONE HCL 0.4 MG/1 ML VIAL/CARP IV PRN (15:26)
[2021-02-14] MEDS ORDERED: LORazepam 0.5 MG/1 ML VIAL IV PRN (15:26)
[2021-02-14] MEDS ORDERED: FAMOTIDINE 20 MG TAB PO PRN (15:26)
[2021-02-14] MEDS ORDERED: ACETAMINOPHEN 500 MG TAB PO PRN (15:26)
--- NOTE | 2021-02-14 15:28 | Anesthesiology Progress Note ---
Date of Service February 14, 2021 Anesthesia Post Procedure Vital Signs Vital Signs: Temp Pulse Pulse Pulse Resp BP BP 02/14/21 14:55 74 14 164/66 H 02/14/21 14:45 80 12 170/85 H 02/14/21 14:35 82 16 121/104 H 02/14/21 14:25 82 12 174/77 H 02/14/21 14:15 90 12 173/97 H 02/14/21 14:06 36.8 C 92 H 95 H 14 146/98 H 02/14/21 11:44 36.9 C 95 H 18 148/73 H 02/14/21 07:39 36.5 C 70 16 153/73 H 02/13/21 22:35 36.4 C L 66 18 150/73 H 02/13/21 15:34 36.5 C 76 20 133/68 Pulse Ox 02/14/21 14:55 98 02/14/21 14:45 99 02/14/21 14:35 99 02/14/21 14:25 98 02/14/21 14:15 98 02/14/21 14:06 94 02/14/21 11:44 98 02/14/21 07:39 99 02/13/21 22:35 98 02/13/21 15:34 96 Pain Intensity Lower Back: Pain Intensity: 4 Transfer of Care Handoff Completed per policy Notes Mental Status: alert / awake / arousable and participated in evaluation Patient Amnestic to Procedure: Yes Nausea / Vomiting: adequately controlled Pain: adequately controlled Airway Patency, RR, SpO2: stable & adequate BP & HR: stable & adequate Hydration State: stable & adequate Anesthetic Complications: no major complications apparent and Pt Satisfied with anesthetic care
--- NOTE | 2021-02-14 15:52 | Electrocardiogram Report ---
Test Reason : Blood Pressure : / mmHG Vent. Rate : 067 BPM Atrial Rate : 067 BPM P-R Int : 188 ms QRS Dur : 100 ms QT Int : 386 ms P-R-T Axes : 054 121 045 degrees QTc Int : 407 ms Normal sinus rhythm Right axis deviation Poor R wave progression, consider anterior [place] vs. lead placement vs. LVH Abnormal ECG No previous ECGs available Confirmed by Todd Panchal ([id number]) on 02/14/2021 3:52:07 PM Referred By: REFERRED SELF Confirmed By:Todd Panchal
--- NOTE | 2021-02-14 16:27 | Electrocardiogram Report ---
Test Reason : Blood Pressure : / mmHG Vent. Rate : 073 BPM Atrial Rate : 073 BPM P-R Int : 186 ms QRS Dur : 090 ms QT Int : 360 ms P-R-T Axes : 050 068 054 degrees QTc Int : 396 ms Normal sinus rhythm Poor R wave progression, consider anterior [place] vs. lead placement vs. LVH Abnormal ECG When compared with ECG of 13-FEB-2021 09:48, (unconfirmed) QRS axis Shifted left Confirmed by Todd Panchal ([id number]) on 02/14/2021 4:27:28 PM Referred By: REFERRED SELF Confirmed By:Todd Panchal
[2021-02-14] MEDS: oxyCODONE HCL IR 5 MG TAB (IMMEDIATE RELEASE) PO PRN (17:28)
[2021-02-14] MEDS: PANTOprazole 40 MG TAB PO SCH (20:31)
[2021-02-14] MEDS: TAMSULOSIN HCL 0.4 MG CAP PO SCH (20:31)
[2021-02-14] MEDS: ATORVASTATIN 40 MG TAB PO SCH (20:32)
[2021-02-14] MEDS: INSULIN GLARGINE SOLOSTAR 100 UNITS/ML 3 ML PEN SC SCH (20:34)
[2021-02-14] MEDS: DOCUSATE SODIUM/SENNA 50/8.6MG TAB PO SCH (20:37)
--- NOTE | 2021-02-14 22:52 | Hospitalist Progress Note ---
Date of Service February 14, 2021 Assessment & Plan (1) Lumbar spinal stenosis: Plan: Persistent discomfort uncontrolled by outpatient measures including FLACO Initially scheduled to have surgery next month, but persistent symptoms at home reported uncontrolled with ordered medications and told to come to ER POD #0 #1 lumbar decompression with bilateral medial facetectomies and foraminotomies L1-2 and L2-L3. #2 posterior spinal fusion L2-L3. #3 placed posterior instrumentation L2-L3. #4 interbody fusion L2-3. #5 placement peek cage 10 x 26 mm at L2-L3. #6 placement locally harvested morselized autograft in the posterior gutters. #7 placement infuse collagen sponge and master graft to posterior gutters and I factor in the interbody space. Holding ASA per orthopedic surgery but continued on statin, BB, NTG prn CXR pre-op without acute process however does note 1.4 cm right lung base nodular density may be secondary to summation density versus pulmonary nodule. Correlation with a nonemergent follow-up chest CT recommended. Post op labs ordered for AM Prior provider recommended telemetry post operatively however currently on srugical bronson. Recent CABG in June 2020. Recommend restarting aspirin when able per surgery recommendations. Routine post op management per orthopedics (2) S/P CABG x 2: Plan: Presented to ER 06/18/20 for crescendo decrescendo angina pectoris and underwent cardiac cath which reveal severe disease in ostial and proximal LAD and 1st diagonal branch. LCx totally obstructed with good distal collateral flow and patient transferred to [facility] and underwent 2 vessel bypass on Jun 22, 2020 -- discharged Jun 28, 2020. Unable to complete full post-cardiac surgery rehab 2nd to back pain/neuropathy. Done by Dr. Mathew at [facility] Holding ASA per orthopedic surgery but continued on statin, BB, NTG prn CXR pre-op without acute process however does note 1.4 cm right lung base nodular density may be secondary to summation density versus pulmonary nodule. Correlation with a nonemergent follow-up chest CT recommended. (Of note, denied hx smoking) EKG NSR (3) CAD (coronary artery disease): Plan: EKG NSR, anterior infarct, RAD but again likely poor lead placement-repeat EKG in the morning No CP reported(hx of symptoms for prior of classic crescendo/decrescendo angina) EKG with CP Continue metoprolol 25mg BID, Atorvastatin 40mg HS (consider increasing to 80mg HS) ASA on hold for surgery (4) Hypertension: Plan: Stable Continue metoprolol tartrate 25mg PO BID Continue to monitor (5) Peripheral neuropathy: Plan: underwent EMG/NCS 11/10/2020 w/ chronic severe axonal sensory motor polyneuropathy. Chronic denervation changes noted in most tested muscles in the left lower extremity which can be seen and longstanding polyneuropathies with loss of the proximal to distal gradient were suggestive of an underlying L2-L5 poly radiculopathy. [facility] note 524 ?Auditory canal MRI May with nonspecific punctate focus of enhancement at level of pontomedullary junction ?clinical sign and in retrospect likely present on prior 2019 study PT/OT following surgery (6) Dyslipidemia: Plan: Continue statin - MRI with some small microvascular disease (7) Type 2 diabetes mellitus: Plan: Most recent A1c 7.05 May 2020 in our system On metformin 1g BID, glipizide 5mg PM, Jardiance 10mg PO AM [employer] HbA1C 7.4 BSGs controlled Continue to monitor (8) Sciatica: Plan: Per ortho (9) Lumbar radicular pain: Plan: see above (10) Sensorineural hearing loss (SNHL) of both ears: Plan: See by ENT Auditory canal MRI without schwannoma b/l assistive devices (11) DVT prophylaxis: Plan: SCD's per Orthopaedics - chemoprophylaxis per orthopaedics Admission and Anticipated Discharge Date Admission Date: February 12, 2021 Subjective Patient seen post operatively. Doing well. Some relief with right lower extremity radicular pain. No chest pains or shortness of breath. EBL 100ml. Review of Systems Review of Systems: All systems reviewed & are unremarkable except as noted in HPI & below Physical Exam Constitutional: WD/WN, vitals as above Eyes: PERRL, conjunctivae normal, anicteric sclerae Respiratory: normal respiratory effort, lungs clear to auscultation Cardiovascular: RRR, no murmur, no edema Gastrointestinal (Abdomen): Percussion/Palpation: abdomen soft; abdomen nontender Musculoskeletal: NV intact distally Skin: no rashes, warm and dry Neurologic: awake; not confused Psychiatric: A+Ox3, euthymic affect Results & Data Results & Data ([facility]) Vital Signs (Past 12 Hours) Vital Signs Temp Pulse Pulse Pulse Resp BP BP 02/14/21 22:30 36.5 C 93 H 18 151/78 H 02/14/21 20:30 84 126/69 02/14/21 19:33 36.5 C 99 H 18 151/75 H 02/14/21 18:24 37.1 C 100 H 20 134/73 02/14/21 17:19 36.6 C 89 20 151/81 H 02/14/21 16:09 36.6 C 78 18 132/76 02/14/21 15:46 36.4 C L 94 H 16 128/75 02/14/21 15:15 36.3 C L 77 16 146/76 H 02/14/21 14:55 74 14 164/66 H 02/14/21 14:45 80 12 170/85 H 02/14/21 14:35 82 16 121/104 H 02/14/21 14:25 82 12 174/77 H 02/14/21 14:15 90 12 173/97 H 02/14/21 14:06 36.8 C 92 H 95 H 14 146/98 H 02/14/21 11:44 36.9 C 95 H 18 148/73 H Pulse Ox 02/14/21 22:30 96 02/14/21 20:30 02/14/21 19:33 95 02/14/21 18:24 96 02/14/21 17:19 96 02/14/21 16:09 92 02/14/21 15:46 94 02/14/21 15:15 97 02/14/21 14:55 98 02/14/21 14:45 99 02/14/21 14:35 99 02/14/21 14:25 98 02/14/21 14:15 98 02/14/21 14:06 94 02/14/21 11:44 98 PG Care Time/CCT Total # of Minutes Spent Total Time Spent with Patient: Total time spent is greater than 50% in coordination of care (as documented) at patient's floor/unit and/or counseling patient: Coding Level of Care Code 27269 Subseq Hosp Care Lvl 2 Diagnoses Lumbar spinal stenosis M48.061 S/P CABG x 2 Z95.1 CAD (coronary artery disease) I25.10 Hypertension I10 Peripheral neuropathy G62.9 Dyslipidemia E78.5 Type 2 diabetes mellitus E11.9 Sciatica M54.31 Laterality: right Lumbar radicular pain M54.16 Sensorineural hearing loss (SNHL) of both ears H90.3 DVT prophylaxis Z29.9 (1) Sciatica Laterality: right Qualified Code(s): M54.31 - Sciatica, right side
[2021-02-15] MEDS: INSULIN ASPART 100 UNITS/ML 3 ML PEN SC SCH ×6 (00:18→21:10)
[2021-02-15] MEDS: ceFAZolin 2000MG 2,000 MG/15 ML SYR IV SCH ×2 (00:39→08:47)
[2021-02-15] MEDS: oxyCODONE HCL IR 5 MG TAB (IMMEDIATE RELEASE) PO PRN ×4 (00:45→16:58)
[2021-02-15] MEDS: SODIUM CHLORIDE 0.9% 1000ML 1,000 ML IV SCH (05:13)
[2021-02-15] MEDS: POLYETHYLENE (MIRALAX) 17 GM PACK PO SCH ×3 (05:25→17:52)
[2021-02-15] MEDS: ACETAMINOPHEN 500 MG TAB PO PRN ×2 (07:25→16:58)
[2021-02-15 08:29] LABS: Basophils # (auto) 0.01 K/uL (0-0.2); Basophils % (auto) 0.1 %; Eosinophils # (auto) 0.04 K/uL (0-0.5); Eosinophils % (auto) 0.5 %; Hematocrit (blood only) 38.8 % (42-52); Immature Granulocytes # (auto) 0.01 K/uL (0.00-0.02); Immature Granulocytes % (auto) 0.1 %; Lymphocytes # (auto) 1.86 K/uL (1.2-3.4); Lymphocytes % (auto) 25.2 %; Mean Corpuscular Hemoglobin 28.3 pg (25-34); Mean Corpuscular Hgb Conc 33.5 g/dL (32-36); Mean Corpuscular Volume 84.3 fL (80-100); Mean Platelet Volume 9.7 fL (7.4-10.4); Monocytes # (auto) 0.68 K/uL (0.11-0.59); Monocytes % (auto) 9.2 %; Neutrophils # (auto) 4.79 K/uL (1.4-6.5); Neutrophils % (auto) 64.9 %; Platelet Count 154 K/uL (130-400); White Blood Count 7.39 K/uL (4.8-10.8)
[2021-02-15] MEDS: POTASSIUM CHLORIDE CRTAB 20 MEQ TABCR PO SCH (08:44)
[2021-02-15] MEDS: METOPROLOL TARTRATE 25 MG TAB PO SCH ×2 (08:45→21:11)
[2021-02-15 08:55] LABS: BUN Creatinine Ratio 25.9 (10-20); Calcium 8.7 mg/dl (8.5-10.1); Creatinine Clr Calc Pharmacy 83.7 ml/min; Est GFR (African American) 100.8 ml/min; Potassium 3.7 mmol/L (3.5-5.1)
--- NOTE | 2021-02-15 10:14 | Orthopedic Progress Note ---
Date of Service February 15, 2021 Assessment & Plan (1) Lumbar spinal stenosis: Plan: This time continue physical therapy monitor his ROSSY output hopefully discharge home the next day or so. Admission and Anticipated Discharge Date Admission Date: February 12, 2021 Subjective Patient states his back pain is controlled leg symptoms markedly improved Physical Exam Physical Exam: Patient is ambulating halls. He is good strength testing. Appears comfortable. Results & Data ([facility]) Vital Signs (Past 12 Hours) Vital Signs Temp Pulse Resp BP Pulse Ox 02/15/21 07:12 36.6 C 70 18 100/65 96 02/15/21 03:54 36.9 C 74 16 128/66 92 02/14/21 22:30 36.5 C 93 H 18 151/78 H 96
--- NOTE | 2021-02-15 18:53 | Hospitalist Progress Note ---
Date of Service February 15, 2021 Assessment & Plan (1) Lumbar spinal stenosis: Plan: Persistent discomfort uncontrolled by outpatient measures including FLACO Initially scheduled to have surgery next month, but persistent symptoms at home reported uncontrolled with ordered medications and told to come to ER POD #1 #1 lumbar decompression with bilateral medial facetectomies and foraminotomies L1-2 and L2-L3. #2 posterior spinal fusion L2-L3. #3 placed posterior instrumentation L2-L3. #4 interbody fusion L2-3. #5 placement peek cage 10 x 26 mm at L2-L3. #6 placement locally harvested morselized autograft in the posterior gutters. #7 placement infuse collagen sponge and master graft to posterior gutters and I factor in the interbody space. Holding ASA per orthopedic surgery but continued on statin, BB, NTG prn. Restart aspirin as soon as safe for his back given recent CABG. CXR pre-op without acute process however does note 1.4 cm right lung base nodular density may be secondary to summation density versus pulmonary nodule. Correlation with a nonemergent follow-up chest CT recommended. Post op labs reviewed and not concerning. Routine post op management per orthopedics (2) S/P CABG x 2: Plan: Presented to ER 06/18/20 for crescendo decrescendo angina pectoris and underwent cardiac cath which reveal severe disease in ostial and proximal LAD and 1st diag onal branch. LCx totally obstructed with good distal collateral flow and patient transferred to [facility] and underwent 2 vessel bypass on Jun 22, 2020 -- discharged Jun 28, 2020. Unable to complete full post-cardiac surgery rehab 2nd to back pain/neuropathy. Done by Dr. Mathew at [facility] Holding ASA per orthopedic surgery but continued on statin, BB, NTG prn CXR pre-op without acute process however does note 1.4 cm right lung base nodular density may be secondary to summation density versus pulmonary nodule. Correlation with a nonemergent follow-up chest CT recommended. (Of note, denied hx smoking) EKG NSR (3) CAD (coronary artery disease): Plan: EKG NSR, anterior infarct, RAD but again likely poor lead placement-repeat EKG in the morning No CP reported(hx of symptoms for prior of classic crescendo/decrescendo angina) EKG with CP Continue metoprolol 25mg BID, Atorvastatin 40mg HS (consider increasing to 80mg HS) ASA on hold for surgery. Restart as soon as safe regarding back surgery. (4) Hypertension: Plan: Stable Continue metoprolol tartrate 25mg PO BID Continue to monitor (5) Peripheral neuropathy: Plan: underwent EMG/NCS 11/10/2020 w/ chronic severe axonal sensory motor polyneuropathy. Chronic denervation changes noted in most tested muscles in the left lower extremity which can be seen and longstanding polyneuropathies with loss of the proximal to distal gradient were suggestive of an underlying L2-L5 poly radiculopathy. [facility] ?Auditory canal MRI May with nonspecific punctate focus of enhancement at level of pontomedullary junction ?clinical sign and in retrospect likely present on prior 2019 study PT/OT (6) Dyslipidemia: Plan: Continue statin - MRI with some small microvascular disease (7) Type 2 diabetes mellitus: Plan: Most recent A1c 7.05 May 2020 in our system On metformin 1g BID, glipizide 5mg PM, Jardiance 10mg PO AM [employer] HbA1C 7.4 BSGs controlled Continue to monitor. Continue on his routine medications on discharge (8) Sciatica: Plan: Per ortho (9) Lumbar radicular pain: Plan: see above (10) Sensorineural hearing loss (SNHL) of both ears: Plan: See by ENT Auditory canal MRI without schwannoma b/l assistive devices (11) DVT prophylaxis: Plan: SCD's per Orthopaedics - chemoprophylaxis per orthopaedics Admission and Anticipated Discharge Date Admission Date: February 12, 2021 Subjective Bakc and right LE radicular pain much improved. ROSSY drain still in place. No chest pain or shortness of breath while walking the hallways. Review of Systems Review of Systems: All systems reviewed & are unremarkable except as noted in HPI & below Physical Exam Constitutional: WD/WN, vitals as above Eyes: + anicteric sclerae; normal pupil size Respiratory: normal respiratory effort, lungs clear to auscultation Cardiovascular: RRR, no murmur, no edema Gastrointestinal (Abdomen): Percussion/Palpation: abdomen soft; abdomen nontender Skin: no rashes, warm and dry Neurologic: awake; not confused Psychiatric: A+Ox3, euthymic affect Results & Data Results & Data ([facility]) Vital Signs (Past 12 Hours) Vital Signs Temp Pulse Resp BP Pulse Ox 02/15/21 15:23 36.7 C 76 18 129/71 97 02/15/21 07:12 36.6 C 70 18 100/65 96 PG Care Time/CCT Total # of Minutes Spent Total Time Spent with Patient: Total time spent is greater than 50% in coordination of care (as documented) at patient's floor/unit and/or counseling patient: Coding Level of Care Code 45403 Subseq Hosp Care Lvl 1 Diagnoses Lumbar spinal stenosis M48.061 S/P CABG x 2 Z95.1 CAD (coronary artery disease) I25.10 Hypertension I10 Peripheral neuropathy G62.9 Dyslipidemia E78.5 Type 2 diabetes mellitus E11.9 Sciatica M54.31 Laterality: right Lumbar radicular pain M54.16 Sensorineural hearing loss (SNHL) of both ears H90.3 DVT prophylaxis Z29.9 (1) Sciatica Laterality: right Qualified Code(s): M54.31 - Sciatica, right side
[2021-02-15] MEDS: INSULIN GLARGINE SOLOSTAR 100 UNITS/ML 3 ML PEN SC SCH (21:10)
[2021-02-15] MEDS: TAMSULOSIN HCL 0.4 MG CAP PO SCH (21:11)
[2021-02-15] MEDS: ATORVASTATIN 40 MG TAB PO SCH (21:11)
[2021-02-15] MEDS: PANTOprazole 40 MG TAB PO SCH (21:12)
[2021-02-15] MEDS: DOCUSATE SODIUM/SENNA 50/8.6MG TAB PO SCH (21:12)
[2021-02-16] MEDS: POLYETHYLENE (MIRALAX) 17 GM PACK PO SCH ×5 (00:58→23:59)
[2021-02-16] MEDS: oxyCODONE HCL IR 5 MG TAB (IMMEDIATE RELEASE) PO PRN ×2 (01:56→08:10)
[2021-02-16] MEDS: METOPROLOL TARTRATE 25 MG TAB PO SCH ×2 (08:06→21:00)
[2021-02-16] MEDS: POTASSIUM CHLORIDE CRTAB 20 MEQ TABCR PO SCH (08:06)
[2021-02-16] MEDS: dexAMETHasone 8 MG in SYRINGE 0 ML IV SCH (08:06)
[2021-02-16] MEDS: INSULIN GLARGINE SOLOSTAR 100 UNITS/ML 3 ML PEN SC SCH (09:22)
[2021-02-16] MEDS: INSULIN ASPART 100 UNITS/ML 3 ML PEN SC SCH ×4 (09:23→21:00)
[2021-02-16] MEDS ORDERED: NovoLIN-N (NPH) PER UNIT CHARGE SQ ONE (09:30)
--- NOTE | 2021-02-16 11:53 | Orthopedic Progress Note ---
Date of Service February 16, 2021 Assessment & Plan (1) Lumbar spinal stenosis: Plan: This time we will continue physical therapy monitor his ROSSY output hopefully discharge home health and home PT soon as tomorrow. Admission and Anticipated Discharge Date Admission Date: February 12, 2021 Subjective Back pain controlled leg pain improved Physical Exam Physical Exam: Patient is in the chair at the bedside has good strength testing. Results & Data ([facility]) Vital Signs (Past 12 Hours) Vital Signs Temp Pulse Resp BP Pulse Ox 02/16/21 11:34 84 15 140/82 97 02/16/21 08:00 36.9 C 78 16 130/76 95 02/16/21 07:33 36.9 C 81 16 150/74 H 98
--- NOTE | 2021-02-16 12:12 | Hospitalist Progress Note ---
Date of Service February 16, 2021 Assessment & Plan (1) Lumbar spinal stenosis: Plan: Persistent discomfort uncontrolled by outpatient measures including FLACO Initially scheduled to have surgery next month, but persistent symptoms at home reported uncontrolled with ordered medications and told to come to ER POD #2 #1 lumbar decompression with bilateral medial facetectomies and foraminotomies L1-2 and L2-L3. #2 posterior spinal fusion L2-L3. #3 placed posterior instrumentation L2-L3. #4 interbody fusion L2-3. #5 placement peek cage 10 x 26 mm at L2-L3. #6 placement locally harvested morselized autograft in the posterior gutters. #7 placement infuse collagen sponge and master graft to posterior gutters and I factor in the interbody space. Doing well post operatively Routine post op management per orthopedics (2) S/P CABG x 2: Plan: Presented to ER 06/18/20 for crescendo decrescendo angina pectoris and underwent cardiac cath which reveal severe disease in ostial and proximal LAD and 1st diagonal branch. LCx totally obstructed with good distal collateral flow and patient transferred to [facility] and underwent 2 vessel bypass on Jun 22, 2020 -- discharged Jun 28, 2020. Unable to complete full post-cardiac surgery rehab 2nd to back pain/neuropathy. Done by Dr. Mathew at [facility] Holding ASA per orthopedic surgery but continued on statin, BB, NTG prn CXR pre-op without acute process however does note 1.4 cm right lung base nodular density may be secondary to summation density versus pulmonary nodule. Correlation with a nonemergent follow-up chest CT recommended. (Of note, denied hx smoking) EKG NSR (3) CAD (coronary artery disease): Plan: EKG NSR, anterior infarct, RAD but again likely poor lead placement-repeat EKG in the morning No CP reported(hx of symptoms for prior of classic crescendo/decrescendo angina) EKG with CP Continue metoprolol 25mg BID, Atorvastatin 40mg HS (consider increasing to 80mg HS) ASA on hold for surgery. Restart as soon as safe regarding back surgery. (4) Hypertension: Plan: Stable Continue metoprolol tartrate 25mg PO BID Continue to monitor (5) Peripheral neuropathy: Plan: underwent EMG/NCS 11/10/2020 w/ chronic severe axonal sensory motor polyneuropathy. Chronic denervation changes noted in most tested muscles in the left lower extremity which can be seen and longstanding polyneuropathies with loss of the proximal to distal gradient were suggestive of an underlying L2-L5 poly radiculopathy. [facility] note 524 ?Auditory canal MRI May with nonspecific punctate focus of enhancement at level of pontomedullary junction ?clinical sign and in retrospect likely present on prior 2019 study PT/OT (6) Dyslipidemia: Plan: Continue statin - MRI with some small microvascular disease (7) Type 2 diabetes mellitus: Plan: Most recent A1c 7.05 May 2020 in our system On metformin 1g BID, glipizide 5mg PM, Jardiance 10mg PO AM [employer] HbA1C 7.4 BSGs controlled Continue on his routine medications on discharge. HbA1C is adequate, follow up with PCP for ongoing control, consider increasing Jardiance to 25mg. (8) Sciatica: Plan: Per ortho (9) Lumbar radicular pain: Plan: see above (10) Sensorineural hearing loss (SNHL) of both ears: Plan: See by ENT Auditory canal MRI without schwannoma b/l assistive devices (11) DVT prophylaxis: Plan: SCD's per Orthopaedics Plan: Thank you for the consult. The patient appears stable post-operatively. We will sign off at this time. Please contact the medical team for re-evaluation if needed. Please restart aspirin as soon as safe from a surgical point of view given recent CABG in June 2020. Admission and Anticipated Discharge Date Admission Date: February 12, 2021 Subjective Patient doing well. Walking back from the bathroom when seen. No acute events overnight. No concerns or questions for me today. No chest pain or shortness of breath on exertion. No calf swelling or pain. ROSSY drain remains in place. Review of Systems Review of Systems: All systems reviewed & are unremarkable except as noted in HPI & below Physical Exam Constitutional: WD/WN, vitals as above Eyes: + anicteric sclerae; normal pupil size Respiratory: normal respiratory effort, lungs clear to auscultation Cardiovascular: RRR, no murmur, no edema Extremities: no calf tenderness Gastrointestinal (Abdomen): Percussion/Palpation: abdomen soft; abdomen nontender Skin: no rashes, warm and dry Neurologic: awake; not confused Psychiatric: A+Ox3, euthymic affect Results & Data Results & Data ([facility]) Vital Signs (Past 12 Hours) Vital Signs Temp Pulse Resp BP Pulse Ox 02/16/21 11:34 84 15 140/82 97 02/16/21 08:00 36.9 C 78 16 130/76 95 02/16/21 07:33 36.9 C 81 16 150/74 H 98 PG Care Time/CCT Total # of Minutes Spent Total Time Spent with Patient: Total time spent is greater than 50% in coordination of care (as documented) at patient's floor/unit and/or counseling patient: Coding Level of Care Code 23435 Subseq Hosp Care Lvl 1 Diagnoses Lumbar spinal stenosis M48.061 S/P CABG x 2 Z95.1 CAD (coronary artery disease) I25.10 Hypertension I10 Peripheral neuropathy G62.9 Dyslipidemia E78.5 Type 2 diabetes mellitus E11.9 Sciatica M54.31 Laterality: right Lumbar radicular pain M54.16 Sensorineural hearing loss (SNHL) of both ears H90.3 DVT prophylaxis Z29.9 (1) Sciatica Laterality: right Qualified Code(s): M54.31 - Sciatica, right side
--- NOTE | 2021-02-16 14:03 | Pharmacy Report ---
Pharmacy Glycemic Short Note 2 - Date of Service February 16, 2021 - Glycemic Short BSG Results (Last 24 hours): 02/15/21 02/15/21 02/16/21 17:20 20:58 08:29 POC Glucose 156 H 149 H 157 H 02/16/21 12:32 POC Glucose 179 H OUTPATIENT ANTIDIABETIC REGIMEN: * Metformin 1000 mg PO BIDM * Glipizide 5 mg PO PM * Jardiance 10 mg PO AM * HbA1c = 7.4% (02/13/21) ASSESSMENT: 02/16: * Pt received total of 46 units of insulin yesterday: 18 units basal + 28 units bolus. * Fasting BSG this AM = 157 mg/dl. Continued basal insulin on a scale based on BSG at HS. * Post prandial BSGs yesterday slightly elevated- CF and CR were tightened with dinner yesterday. * Pt is now ordered Dexamethasone 8 mg IV daily which started today AM. To prevent steroid induced hyperglycemia, added NPH insulin this AM also to be given with Dex IV. NPH dosed at 0.3 units/kg using adjusted body wt. 02/14: * Ellis received a total of 38 units of insulin yesterday * 15 units basal + 23 units bolus * BSGs were acceptable: [phone] mg/dL * Fasting BSG was 143 mg/dL this AM * Patient is NPO today as surgery is planned this afternoon. * Pending perioperative steroid administration and postoperative BSG, patient's insulin regimen may need adjusted. Would recommend tightening Novolog for postoperative hyperglycemia given that it is likely stress/steroid related. However, it is important to maintain a BSG below 180 mg/dL to promote wound healing and prevent infection. As long as a diet is ordered and tolerated postoperatively, then plan on slightly increasing basal tonight. 02/12: * 80 yo M with T2DM admitted for inadequate outpatient pain control and surgical consult with Dr. Paez * BSG's today in range, but stopping po meds. Will therefore initiate low-dose Lantus x1 and reassess tomorrow * Initiate Novolog weight-based moderate stress estimate PLAN FOR INPATIENT GLYCEMIC CONTROL: * Hold outpatient oral diabetes medications * Basal insulin * Lantus 18-21 units SC HS (see eMAR for more details) * NPH 22 units QAM with IV Dexamethasone 8 mg. (Do not give NPH if Dexamethasone is not given). * Bolus insulin: CF and CR tightened * NovoLog per scale ACHS or Q6hrs while NPO * Goal Range: Low 110 mg/dL - High 140 mg/dL * Correction Factor: 20 mg/dL/unit * Nutritional / Prandial insulin per carb ratio of 1 unit per 6 grams CHO consumed PLAN FOR DISCHARGE: * HbA1c is at goal for this patient based on his age and comorbidities. No changes recommend upon discharge.
[2021-02-16] MEDS: DOCUSATE SODIUM/SENNA 50/8.6MG TAB PO SCH (21:00)
[2021-02-16] MEDS: PANTOprazole 40 MG TAB PO SCH (21:00)
[2021-02-16] MEDS: ATORVASTATIN 40 MG TAB PO SCH (21:00)
[2021-02-16] MEDS: TAMSULOSIN HCL 0.4 MG CAP PO SCH (21:00)
[2021-02-17] MEDS: ACETAMINOPHEN 500 MG TAB PO PRN (01:01)
[2021-02-17] MEDS: POLYETHYLENE (MIRALAX) 17 GM PACK PO SCH (05:54)
[2021-02-17] MEDS: POTASSIUM CHLORIDE CRTAB 20 MEQ TABCR PO SCH (07:49)
[2021-02-17] MEDS: dexAMETHasone 8 MG in SYRINGE 0 ML IV SCH (07:50)
[2021-02-17] MEDS: METOPROLOL TARTRATE 25 MG TAB PO SCH (07:50)
--- NOTE | 2021-02-17 08:41 | Discharge Summary ---
Date of Service February 17, 2021 Admission HPI Per Admitting Provider This is an 80-year-old male that was able to see approximately week ago in my office. He presented with severe spinal stenosis. He was in a wheelchair secondary to the inability to ambulate. At that time we did diagnose him with severe spinal stenosis L2-L3 and was scheduling surgery in the next few weeks. Unfortunately has had continued decline since my evaluation a week ago. His pain has been uncontrolled and admitted for pain control and worsening leg weakness. He continues to have pain predominantly in the right lower extremity buttock posterior thigh to the knee and lower extremity. He is unable to ambulate secondary to pain and weakness. The left lower extremity is asymptomatic. Admission Exam (Per Admitting) Constitutional WD/WN, vitals as above Eyes normal visual mcgovern by confrontation ENMT external ear and nose normal, oropharynx normal Neck normal visual inspection Respiratory normal respiratory effort Cardiovascular Extremities: normal capillary refill Gastrointestinal (Abdomen) Inspection/Auscultation: abdomen normal to inspection Musculoskeletal Extremities: extremities normal to inspection Skin no rashes, warm and dry Neurologic normal touch/pain/proprioception and moves all extremities Psychiatric A+Ox3, euthymic affect Discharge Data Consultations 02/12/21 12:27 ED Decision to Admit Stat 02/12/21 16:25 Consult Internal Medicine Routine Procedures Performed Operation Date: 02/14/21 09:40 Actual Procedures p L2-L3 Decompression and Fusion - Jaspreet Paez, DO Hospital Course (1) Lumbar spinal stenosis: Patient presented to the emergency room several days ago due to a decline in his status including right lower extremity weakness and difficulty ambulating. He was subsequently taken to the operating room on February [address] Paez for posterior lumbar decompression and instrumented fusion at the L2-3 level. He has had an uncomplicated postoperative course. Lab values have been stable. He has been making progress in physical therapy. Pain is well controlled. He is being discharged home on postoperative day 3. Discharge Instructions ACTIVITY RECOMMENDATIONS: SELF CARE INSTRUCTIONS AFTER THORACIC/LUMBAR FUSIONS 1. You may walk to your tolerance. It is good exercise for your legs and back. Expect some back and intermittent leg aches and pains. 2. You may perform "counter-top" level activities (make a sandwich, keila with a project, etc.). 3. No bending or lifting of more than 10 pounds or back twisting of any nature (roll like a log when turning in bed). 4. You may ride in a car for 20-30 minutes at a time. No driving until after your first visit with your doctor. 5. Frequent changes of position and restricting sitting to 30 minutes at a time will help limit the amount of back spasms and stiffness you may experience. 6. You may discontinue the use of ambulatory aids (cane, crutches, etc.) once your strength and confidence allow. 7. You may composing room supervisor the shower and let water strike your incision when you arrive home at least once daily. Do not take a tub bath, sit in a hot tub or go into a swimming pool until after your first recheck in the office. SPECIAL CARE INSTRUCTIONS: VERY IMPORTANT TO READ AND REVIEW A. Your surgical incision has been closed with a cosmetic suture under the skin that will dissolve in about 6 weeks. In 14 days, you can use a pair of clean scissors and cut the suture that is left outside of the skin at the ends of your incision. 1. The small skin tapes can be removed 7 days after surgery if they have not fallen off by that point. 2. You may keep the wound open to air as much as possible to promote healing after post-op day number 5 unless told otherwise by your doctor. 3. If you think the wound looks like it is becoming infected (redness or worsening drainage) and/or you are experiencing fever, chill or worsening back pain and muscle spasms, contact the office so that we may evaluate you as soon as possible. B. Complications are uncommon, but please contact us if you have any signs or symptoms of: 1. wound infection (fever higher than 102.5 degrees F, redness, separation of wound, drainage, or increasing pain from the incision) 2. blood clots in legs (pain, swelling, redness and warmth in legs) 3. urinary tract infection (fever higher than 102.5 degrees F, burning upon urination or increased frequency of urination) 4. nerve problems (inability to walk on your toes or heels, numbness, loss of bowel or bladder control) 5. any other symptoms that concern you C. Please call the office at if you have any concerns or questions about your operation or recovery. D. No smoking! Smoking drastically decreases the chance of a solid fusion. E. Do not take any anti-inflammatory medications (Indocin, Advil, Motrin, Aspirin, Naprosyn, etc.) as these may inhibit the chance of a solid fusion. Tylenol is okay to take for pain. MANAGING PAIN AFTER SPINAL SURGERY 1. Narcotic medication is intended for short-term use and will be provided for surgical pain. Surgical pain usually lasts for a period of 4-6 weeks. Narcotic medication includes Percocet, Vicodin, Darvocet, Tylenol #3 or Lortab. 2. Longer-term pain is more appropriately treated with non-narcotic medication such as Tylenol ES. 3. Muscle spasm is not appropriately treated with narcotics. Muscle relaxers such as Soma, Flexeril or Skelaxin can be used along with Tylenol ES. 4. Remember that we all live with some "aches and pains". This is not unusual or uncommon after an injury or as we get older. a. Back pain is expected and may include muscle spasms for 4 to 6 weeks after surgery. The pain should gradually improve. If the pain worsens for no apparent reason, please contact the office. b. Intermittent leg pain may also be experienced and should not be concerned about unless it worsens for no apparent reason. If so, please contact the office. 5. We will provide appropriate medication within the normal guidelines of their prescribed use. We will also be very cautious and aware of potential abuse and extended duration of patients' medication needs. a. Pain medications are for your comfort and to assist with sleep and rest so that the tissue can heal. They are not provided in order to return to normal activity and should not be used through the day. To do so or worsening pain at night can result from ongoing tissue damage and development of tolerance to the prescribed medicine. 6. Please allow 2-3 days to process refills. Prescriptions will not be mailed but must be picked up at the office. FOLLOW UP VISIT: Keep your scheduled follow-up appointment. Any questions, please call the office at . Supervising Physician Co-Signing Physician Notes Dr. Jaspreet Paez
[2021-02-17] MEDS ORDERED: NovoLIN-N (NPH) PER UNIT CHARGE SQ ONE (09:00)
[2021-02-17] MEDS: INSULIN ASPART 100 UNITS/ML 3 ML PEN SC SCH (09:14)
== END 2021-02-17 10:49 | disposition home health service (06) | DRG 455 ==
LOC: ED 10:44 → 3N 16:25